=== PATIENT | male | born 1955 | race Caucasian/White ===

== ENCOUNTER 2018-05-29 16:06 | Inpatient (IN) | payer OTHER, SELFPAY ==
[2018-05-29 16:20] VITALS: BP 137/86; PULSE 63; RESP 16; TEMP 36.8; O2SAT 96; BMI 28.3
--- NOTE | 2018-05-29 16:25 | DI.RAD.S_ITS ---
PROCEDURE: XR RIBS LT MIN 3V W CXR1V INDICATIONS: fell and hurt left side of back/ribs. TECHNIQUE: 2 views of the left hip ribs were acquired, along with a single view chest. COMPARISON: None. FINDINGS: Surgical changes and devices: None. Left seventh-ninth rib fractures, mildly displaced. There is also a lateral 11th rib fracture Lungs and pleura: No pleural effusions or pneumothorax. Low lung volumes. No acute consolidation Mediastinum: Mediastinal contours appear normal. Heart size is normal. IMPRESSION: Minimally displaced left seventh, eighth, ninth and 11th rib fractures. Low lung volumes. No acute consolidation No pneumothorax. Dictated by: Jonathan Ambriz M.D. on 05/29/2018 at 16:45 Approved by: Jonathan Ambriz M.D. on 05/29/2018 at 16:53
--- NOTE | 2018-05-29 17:36 | ED.FALL ---
HPI - Fall <Suzy Gomes PA-C - Last Filed: 05/29/18 21:31> General Chief Complaint: Trauma Stated Complaint: Fall 5ft, has left rib pain Time Seen by Provider: 05/29/18 17:27 Source: patient Mode of arrival: ambulatory Limitations: no limitations History of Present Illness HPI Narrative: This 62-year-old male comes in today after he fell 65 in off of a scaffolding at work onto his left posterior lateral rib area. Since then, he has had pain in his ribs. He states that he is not short of breath but it is painful to breathe. He does not have any history of cardiac or lung disease. He denies hitting his head or LOC. He denies neck pain.. He states that he scraped his left wrist but not having any trouble moving it and denies any other injury. Related Data Home Medications Medication Instructions Recorded Confirmed lisinopril 10 mg PO DAILY 05/29/18 05/29/18 Previous Rx's Medication Instructions Recorded hydrocodone-acetaminophen [Vicodin 1 tab PO Q4-6H PRN #20 tab 05/31/18 HP] Allergies Allergy/AdvReac Type Severity Reaction Status Date / Time No Known Drug Allergies Allergy Verified 05/29/18 16:23 Review of Systems <Suzy Gomes PA-C - Last Filed: 05/29/18 21:31> Review of Systems All systems reviewed & are unremarkable except as noted in HPI and below Exam <Suzy Gomes PA-C - Last Filed: 05/29/18 21:31> Narrative Exam Narrative: GENERAL APPEARANCE: Patient appears mildly uncomfortable, but in NAD NECK/THYROID: Neck supple LUNGS: Clear to auscultation bilaterally, patient is splinting. CHEST: Tender over the left mid to inferior posterior lateral ribs, no tenderness elsewhere over the chest HEART: Regular rate and rhythm without murmur, normal S1, S2, no S3 or S4. ABDOMEN: Soft, NT, ND, + BS x 4 quadrants EXTREMITIES: No edema NEUROLOGIC: Alert and oriented, normal speech, gait and coordination. Initial Vital Signs Initial Vital Signs: Vital Signs Temperature 98.3 F 05/29/18 16:20 Pulse Rate 63 05/29/18 16:20 Respiratory Rate 16 05/29/18 16:20 Blood Pressure 137/86 05/29/18 16:20 Pulse Oximetry 96 05/29/18 16:20 <Alejo Covarrubias DO - Last Filed: 06/01/18 07:28> Initial Vital Signs Initial Vital Signs: Vital Signs Temperature 98.3 F 05/29/18 16:20 Pulse Rate 63 05/29/18 16:20 Respiratory Rate 16 05/29/18 16:20 Blood Pressure 137/86 05/29/18 16:20 Pulse Oximetry 96 05/29/18 16:20 Course <Suzy Gomes PA-C - Last Filed: 05/29/18 21:31> Additional Information: Spoke with Dr. 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 She took report on the patient and will have the night call provider do H&P as we are just initiating IV and pain medication for patient and are waiting on a floor bed for him. Patient felt much improved after Dilaudid with more comfort taking deep breaths and was stable during his ED stay Orders Ordered: Discontinued Medications Acetaminophen (Tylenol) 1,000 mg PO Q8HR PRN PRN Reason: pain mild and moderate Acetaminophen (Tylenol) 975 mg PO Q8HR PRN PRN Reason: pain mild and moderate Last Admin: 05/31/18 08:27 Dose: 975 mg Admin: 05/30/18 09:15 Dose: 975 mg Hydrocodone Bitart/Acetaminophen ([place] 5/325) 2 tab PO NOW ONE Stop: 05/29/18 17:19 Last Admin: 05/29/18 17:44 Dose: 2 tab Bisacodyl (Dulcolax) 10 mg [place] DAILY PRN PRN Reason: Constipation Docusate Sodium (Colace) 100 mg PO BID [facility] Last Admin: 05/30/18 19:51 Dose: Not Given Admin: 05/30/18 09:17 Dose: 100 mg Admin: 05/29/18 23:31 Dose: 100 mg Fentanyl (Sublimaze) 25 mcg IV NOW ONE Stop: 05/29/18 21:27 Last Admin: 05/29/18 21:40 Dose: 25 mcg Heparin Sodium (Porcine) (Heparin) 5,000 unit SUBCUT BID [facility] Last Admin: 05/30/18 19:50 Dose: Not Given Admin: 05/30/18 10:30 Dose: Not Given Hydromorphone HCl (Dilaudid) 1 mg IV NOW ONE Stop: 05/29/18 17:46 Last Admin: 05/29/18 18:40 Dose: 1 mg Hydromorphone HCl (Dilaudid) 1 mg IV Q4H PRN PRN Reason: Pain, Severe (7-10) Last Admin: 05/29/18 23:24 Dose: 1 mg Hydromorphone HCl (Dilaudid) 1 mg IV Q4H PRN PRN Reason: Pain, Severe (7-10) Stop: 06/01/18 06:00 Last Admin: 05/30/18 14:15 Dose: 1 mg Admin: 05/30/18 03:39 Dose: 1 mg Sodium Chloride (Normal Saline 0.9%) 1,000 mls @ 75 mls/hr IV CONT [facility] Last Infusion: 05/30/18 10:33 Dose: 0 mls/hr Infusion: 05/30/18 10:31 Dose: 0 mls/hr Infusion: 05/30/18 09:17 Dose: 0 mls/hr Admin: 05/30/18 02:20 Dose: 75 mls/hr Ketorolac Tromethamine (Toradol) 30 mg IV Q8HR [facility] Stop: 06/03/18 22:17 Last Admin: 05/29/18 23:21 Dose: 30 mg Ketorolac Tromethamine (Toradol) 30 mg IV Q8HR [facility] Stop: 06/01/18 06:00 Last Admin: 05/31/18 05:52 Dose: 30 mg Admin: 05/30/18 21:32 Dose: 30 mg Admin: 05/30/18 13:50 Dose: 30 mg Admin: 05/30/18 05:59 Dose: 30 mg Lisinopril (Zestril) 10 mg PO DAILY [facility] Last Admin: 05/30/18 09:16 Dose: 10 mg Melatonin (Melatonin) 6 mg PO BEDTIME [facility] Oxycodone HCl (Percolone) 5 mg PO Q4HR [facility] Last Admin: 05/30/18 10:33 Dose: Not Given Admin: 05/30/18 05:08 Dose: 5 mg Admin: 05/30/18 01:32 Dose: 5 mg Oxycodone HCl ([place]one) 5 mg PO Q4HR [facility] Last Admin: 05/31/18 08:28 Dose: 5 mg Admin: 05/31/18 04:48 Dose: 5 mg Admin: 05/31/18 01:06 Dose: 5 mg Admin: 05/30/18 20:55 Dose: 5 mg Admin: 05/30/18 17:57 Dose: 5 mg Admin: 05/30/18 12:52 Dose: 5 mg Admin: 05/30/18 09:16 Dose: 5 mg Trazodone HCl (Desyrel) 50 mg PO BEDTIME ONE Stop: 05/30/18 22:36 Last Admin: 05/30/18 22:53 Dose: 50 mg Vital Signs - 8 hr 05/29/18 16:20 05/29/18 21:29 Temperature 98.3 F 97.0 F L Pulse Rate 63 60 Respiratory Rate 16 18 Blood Pressure 137/86 148/93 H Pulse Oximetry 96 96 <Alejo Covarrubias DO - Last Filed: 06/01/18 07:28> Orders Ordered: Discontinued Medications Acetaminophen (Tylenol) 1,000 mg PO Q8HR PRN PRN Reason: pain mild and moderate Acetaminophen (Tylenol) 975 mg PO Q8HR PRN PRN Reason: pain mild and moderate Last Admin: 05/31/18 08:27 Dose: 975 mg Admin: 05/30/18 09:15 Dose: 975 mg Hydrocodone Bitart/Acetaminophen ([place] 5/325) 2 tab PO NOW ONE Stop: 05/29/18 17:19 Last Admin: 05/29/18 17:44 Dose: 2 tab Bisacodyl (Dulcolax) 10 mg TN DAILY PRN PRN Reason: Constipation Docusate Sodium (Colace) 100 mg PO BID [facility] Last Admin: 05/30/18 19:51 Dose: Not Given Admin: 05/30/18 09:17 Dose: 100 mg Admin: 05/29/18 23:31 Dose: 100 mg Fentanyl (Sublimaze) 25 mcg IV NOW ONE Stop: 05/29/18 21:27 Last Admin: 05/29/18 21:40 Dose: 25 mcg Heparin Sodium (Porcine) (Heparin) 5,000 unit SUBCUT BID [facility] Last Admin: 05/30/18 19:50 Dose: Not Given Admin: 05/30/18 10:30 Dose: Not Given Hydromorphone HCl (Dilaudid) 1 mg IV NOW ONE Stop: 05/29/18 17:46 Last Admin: 05/29/18 18:40 Dose: 1 mg Hydromorphone HCl (Dilaudid) 1 mg IV Q4H PRN PRN Reason: Pain, Severe (7-10) Last Admin: 05/29/18 23:24 Dose: 1 mg Hydromorphone HCl (Dilaudid) 1 mg IV Q4H PRN PRN Reason: Pain, Severe (7-10) Stop: 06/01/18 06:00 Last Admin: 05/30/18 14:15 Dose: 1 mg Admin: 05/30/18 03:39 Dose: 1 mg Sodium Chloride (Normal Saline 0.9%) 1,000 mls @ 75 mls/hr IV CONT [facility] Last Infusion: 05/30/18 10:33 Dose: 0 mls/hr Infusion: 05/30/18 10:31 Dose: 0 mls/hr Infusion: 05/30/18 09:17 Dose: 0 mls/hr Admin: 05/30/18 02:20 Dose: 75 mls/hr Ketorolac Tromethamine (Toradol) 30 mg IV Q8HR [facility] Stop: 06/03/18 22:17 Last Admin: 05/29/18 23:21 Dose: 30 mg Ketorolac Tromethamine (Toradol) 30 mg IV Q8HR [facility] Stop: 06/01/18 06:00 Last Admin: 05/31/18 05:52 Dose: 30 mg Admin: 05/30/18 21:32 Dose: 30 mg Admin: 05/30/18 13:50 Dose: 30 mg Admin: 05/30/18 05:59 Dose: 30 mg Lisinopril (Zestril) 10 mg PO DAILY [facility] Last Admin: 05/30/18 09:16 Dose: 10 mg Melatonin (Melatonin) 6 mg PO BEDTIME [facility] Oxycodone HCl ([place]) 5 mg PO Q4HR [facility] Last Admin: 05/30/18 10:33 Dose: Not Given Admin: 05/30/18 05:08 Dose: 5 mg Admin: 05/30/18 01:32 Dose: 5 mg Oxycodone HCl ([place]) 5 mg PO Q4HR [facility] Last Admin: 05/31/18 08:28 Dose: 5 mg Admin: 05/31/18 04:48 Dose: 5 mg Admin: 05/31/18 01:06 Dose: 5 mg Admin: 05/30/18 20:55 Dose: 5 mg Admin: 05/30/18 17:57 Dose: 5 mg Admin: 05/30/18 12:52 Dose: 5 mg Admin: 05/30/18 09:16 Dose: 5 mg Trazodone HCl (Desyrel) 50 mg PO BEDTIME ONE Stop: 05/30/18 22:36 Last Admin: 05/30/18 22:53 Dose: 50 mg Vital Signs - 8 hr 05/29/18 16:20 05/29/18 21:29 Temperature 98.3 F 97.0 F L Pulse Rate 63 60 Respiratory Rate 16 18 Blood Pressure 137/86 148/93 H Pulse Oximetry 96 96 MDM - Fall <Suzy Gomes PA-C - Last Filed: 05/29/18 21:31> Lab Data Result diagrams: 05/31/18 04:45 05/31/18 04:45 Lab Results 05/29/18 05/30/18 05/30/18 Range/Units 21:01 04:39 04:39 WBC 8.9 (4.5-11.0) X10^3/uL RBC 4.36 L (4.5-5.9) X10^6/uL Hgb 13.2 L (13.5-17.5) g/dL Hct 38.8 L (41-53) % MCV 88.8 (80-100) fL MCH 30.2 (26-34) PG MCHC 34.0 (30-36) % RDW 13.0 (11.6-14.8) % Plt Count 269 (150-400) X10^3/uL Neut % (Auto) 72.2 (50-75) % Lymph % (Auto) 17.8 L (25-40) % [place] % (Auto) 9.5 (3-14) % Eos % (Auto) 0.4 L (2-4) % Baso % (Auto) 0.1 (0-2) % Neut # (Auto) 6400 H (6171-9764) /uL Sodium 137 (137-145) mmol/L Potassium 3.9 (3.4-5.1) mmol/L Chloride 102 (98-107) mmol/L Carbon Dioxide 27 (22-32) mmol/L BUN 20 (9-20) mg/dL Creatinine 0.80 (0.66-1.25) mg/dL Estimated GFR > 60.0 (>60) mL/min BUN/Creatinine Ratio 25.0 H (6-22) Glucose 114 H (80-110) mg/dL Calcium 9.3 (8.4-10.2) mg/dL Total Bilirubin 0.5 (0.2-1.3) mg/dL AST 28 (17-59) IU/L ALT 38 (21-72) IU/L Alkaline Phosphatase 47 (38-126) U/L Total Protein 6.6 (6.3-8.2) g/dL Albumin 3.9 (3.5-5.0) g/dL Globulin 2.7 (1.7-4.1) g/dL Albumin/Globulin Ratio 1.4 (1.0-2.8) Nasal Screen MRSA (PCR) Negative for mrsa (Negative) 05/31/18 05/31/18 Range/Units 04:45 04:45 WBC 5.8 (4.5-11.0) X10^3/uL RBC 4.40 L (4.5-5.9) X10^6/uL Hgb 13.1 L (13.5-17.5) g/dL Hct 39.2 L (41-53) % MCV 89.0 (80-100) fL MCH 29.7 (26-34) PG MCHC 33.4 (30-36) % RDW 12.9 (11.6-14.8) % Plt Count 231 (150-400) X10^3/uL Neut % (Auto) 60.5 (50-75) % Lymph % (Auto) 26.6 (25-40) % [place] % (Auto) 9.8 (3-14) % Eos % (Auto) 2.4 (2-4) % Baso % (Auto) 0.7 (0-2) % Neut # (Auto) 3500 (5668-7048) /uL Sodium 140 (137-145) mmol/L Potassium 4.2 (3.4-5.1) mmol/L Chloride 104 (98-107) mmol/L Carbon Dioxide 28 (22-32) mmol/L BUN 18 (9-20) mg/dL Creatinine 0.70 (0.66-1.25) mg/dL Estimated GFR > 60.0 (>60) mL/min BUN/Creatinine Ratio 25.7 H (6-22) Glucose 102 (80-110) mg/dL Calcium 8.8 (8.4-10.2) mg/dL Total Bilirubin (0.2-1.3) mg/dL AST (17-59) IU/L ALT (21-72) IU/L Alkaline Phosphatase (38-126) U/L Total Protein (6.3-8.2) g/dL Albumin (3.5-5.0) g/dL Globulin (1.7-4.1) g/dL Albumin/Globulin Ratio (1.0-2.8) Nasal Screen MRSA (PCR) (Negative) Imaging Data Chest x-ray: Radiologist's impression: [address] [address] XRay Report Signed Patient: Shar Charlton EMR#: [id number] : 5Acct:[id number] Age/Sex: 62 / MDate of Service: 05/29/18 Loc: ED Accession Number: [id number] Procedure: XR ribs LT min 3V w CXR1V Ordering Provider: Alejo Covarrubias D.O. PROCEDURE: XR RIBS LT MIN 3V W CXR1V INDICATIONS: fell and hurt left side of back/ribs. TECHNIQUE: 2 views of the left hip ribs were acquired, along with a single view chest. COMPARISON: None. FINDINGS: Surgical changes and devices: None. Left seventh-ninth rib fractures, mildly displaced. There is also a lateral 11th rib fracture Lungs and pleura: No pleural effusions or pneumothorax. Low lung volumes. No acute consolidation Mediastinum: Mediastinal contours appear normal. Heart size is normal. IMPRESSION: Minimally displaced left seventh, eighth, ninth and 11th rib fractures. Low lung volumes. No acute consolidation No pneumothorax. Dictated by: Jonathan Ambriz M.D. on 05/29/2018 at 16:45 Approved by: Jonathan Ambriz M.D. on 05/29/2018 at 16:53 <Alejo Covarrubias DO - Last Filed: 06/01/18 07:28> Lab Data Lab Results 05/29/18 05/30/18 05/30/18 Range/Units 21:01 04:39 04:39 WBC 8.9 (4.5-11.0) X10^3/uL RBC 4.36 L (4.5-5.9) X10^6/uL Hgb 13.2 L (13.5-17.5) g/dL Hct 38.8 L (41-53) % MCV 88.8 (80-100) fL MCH 30.2 (26-34) PG MCHC 34.0 (30-36) % RDW 13.0 (11.6-14.8) % Plt Count 269 (150-400) X10^3/uL Neut % (Auto) 72.2 (50-75) % Lymph % (Auto) 17.8 L (25-40) % [place] % (Auto) 9.5 (3-14) % Eos % (Auto) 0.4 L (2-4) % Baso % (Auto) 0.1 (0-2) % Neut # (Auto) 6400 H (2244-7180) /uL Sodium 137 (137-145) mmol/L Potassium 3.9 (3.4-5.1) mmol/L Chloride 102 (98-107) mmol/L Carbon Dioxide 27 (22-32) mmol/L BUN 20 (9-20) mg/dL Creatinine 0.80 (0.66-1.25) mg/dL Estimated GFR > 60.0 (>60) mL/min BUN/Creatinine Ratio 25.0 H (6-22) Glucose 114 H (80-110) mg/dL Calcium 9.3 (8.4-10.2) mg/dL Total Bilirubin 0.5 (0.2-1.3) mg/dL AST 28 (17-59) IU/L ALT 38 (21-72) IU/L Alkaline Phosphatase 47 (38-126) U/L Total Protein 6.6 (6.3-8.2) g/dL Albumin 3.9 (3.5-5.0) g/dL Globulin 2.7 (1.7-4.1) g/dL Albumin/Globulin Ratio 1.4 (1.0-2.8) Nasal Screen MRSA (PCR) Negative for mrsa (Negative) 05/31/18 05/31/18 Range/Units 04:45 04:45 WBC 5.8 (4.5-11.0) X10^3/uL RBC 4.40 L (4.5-5.9) X10^6/uL Hgb 13.1 L (13.5-17.5) g/dL Hct 39.2 L (41-53) % MCV 89.0 (80-100) fL MCH 29.7 (26-34) PG MCHC 33.4 (30-36) % RDW 12.9 (11.6-14.8) % Plt Count 231 (150-400) X10^3/uL Neut % (Auto) 60.5 (50-75) % Lymph % (Auto) 26.6 (25-40) % [place] % (Auto) 9.8 (3-14) % Eos % (Auto) 2.4 (2-4) % Baso % (Auto) 0.7 (0-2) % Neut # (Auto) 3500 (1133-2175) /uL Sodium 140 (137-145) mmol/L Potassium 4.2 (3.4-5.1) mmol/L Chloride 104 (98-107) mmol/L Carbon Dioxide 28 (22-32) mmol/L BUN 18 (9-20) mg/dL Creatinine 0.70 (0.66-1.25) mg/dL Estimated GFR > 60.0 (>60) mL/min BUN/Creatinine Ratio 25.7 H (6-22) Glucose 102 (80-110) mg/dL Calcium 8.8 (8.4-10.2) mg/dL Total Bilirubin (0.2-1.3) mg/dL AST (17-59) IU/L ALT (21-72) IU/L Alkaline Phosphatase (38-126) U/L Total Protein (6.3-8.2) g/dL Albumin (3.5-5.0) g/dL Globulin (1.7-4.1) g/dL Albumin/Globulin Ratio (1.0-2.8) Nasal Screen MRSA (PCR) (Negative) Discharge Plan Departure Patient Disposition: Admitted as Observation Clinical Impression: Multiple fractures of rib involving four or more ribs Discharge Date/Time: 05/29/18 20:51 Interventions: ED Discharge Assessment Last Done: 05/29/18 20:50 Admit Date/Time: 05/29/18 18:02 Admit Provider: Jayna Christensen <Alejo Covarrubias, - Last Filed: 06/01/18 07:28> Cosign ED Attending Homero Attestation: I was available for consultation during this patient's emergency department encounter
--- NOTE | 2018-05-29 17:39 | ED_ITS ---
HPI - Fall <Suzy Gomes PA-C - Last Filed: 05/29/18 21:31> General Chief Complaint: Trauma Stated Complaint: Fall 5ft, has left rib pain Time Seen by Provider: 05/29/18 17:27 Source: patient Mode of arrival: ambulatory Limitations: no limitations History of Present Illness HPI Narrative: This 62-year-old male comes in today after he fell 65 in off of a scaffolding at work onto his left posterior lateral rib area. Since then, he has had pain in his ribs. He states that he is not short of breath but it is painful to breathe. He does not have any history of cardiac or lung disease. He denies hitting his head or LOC. He denies neck pain.. He states that he scraped his left wrist but not having any trouble moving it and denies any other injury. Related Data Home Medications Medication Instructions Recorded Confirmed lisinopril 10 mg PO DAILY 05/29/18 05/29/18 Previous Rx's Medication Instructions Recorded hydrocodone-acetaminophen [Vicodin 1 tab PO Q4-6H PRN #20 tab 05/31/18 HP] Allergies Allergy/AdvReac Type Severity Reaction Status Date / Time No Known Drug Allergies Allergy Verified 05/29/18 16:23 Review of Systems <Suzy Gomes PA-C - Last Filed: 05/29/18 21:31> Review of Systems All systems reviewed & are unremarkable except as noted in HPI and below Exam <Suzy Gomes PA-C - Last Filed: 05/29/18 21:31> Narrative Exam Narrative: GENERAL APPEARANCE: Patient appears mildly uncomfortable, but in NAD NECK/THYROID: Neck supple LUNGS: Clear to auscultation bilaterally, patient is splinting. CHEST: Tender over the left mid to inferior posterior lateral ribs, no tenderness elsewhere over the chest HEART: Regular rate and rhythm without murmur, normal S1, S2, no S3 or S4. ABDOMEN: Soft, NT, ND, + BS x 4 quadrants EXTREMITIES: No edema NEUROLOGIC: Alert and oriented, normal speech, gait and coordination. Initial Vital Signs Initial Vital Signs: Vital Signs Temperature 98.3 F 05/29/18 16:20 Pulse Rate 63 05/29/18 16:20 Respiratory Rate 16 05/29/18 16:20 Blood Pressure 137/86 05/29/18 16:20 Pulse Oximetry 96 05/29/18 16:20 <Alejo Covarrubias DO - Last Filed: 06/01/18 07:28> Initial Vital Signs Initial Vital Signs: Vital Signs Temperature 98.3 F 05/29/18 16:20 Pulse Rate 63 05/29/18 16:20 Respiratory Rate 16 05/29/18 16:20 Blood Pressure 137/86 05/29/18 16:20 Pulse Oximetry 96 05/29/18 16:20 Course <Suzy Gomes PA-C - Last Filed: 05/29/18 21:31> Additional Information: Spoke with Dr. Christensen ip litigation associate hospitalist. She took report on the patient and will have the night call provider do H&P as we are just initiating IV and pain medication for patient and are waiting on a floor bed for him. Patient felt much improved after Dilaudid with more comfort taking deep breaths and was stable during his ED stay Orders Ordered: Discontinued Medications Acetaminophen (Tylenol) 1,000 mg PO Q8HR PRN PRN Reason: pain mild and moderate Acetaminophen (Tylenol) 975 mg PO Q8HR PRN PRN Reason: pain mild and moderate Last Admin: 05/31/18 08:27 Dose: 975 mg Admin: 05/30/18 09:15 Dose: 975 mg Hydrocodone Bitart/Acetaminophen ([place] 5/325) 2 tab PO NOW ONE Stop: 05/29/18 17:19 Last Admin: 05/29/18 17:44 Dose: 2 tab Bisacodyl (Dulcolax) 10 mg ID DAILY PRN PRN Reason: Constipation Docusate Sodium (Colace) 100 mg PO BID [facility] Last Admin: 05/30/18 19:51 Dose: Not Given Admin: 05/30/18 09:17 Dose: 100 mg Admin: 05/29/18 23:31 Dose: 100 mg Fentanyl (Sublimaze) 25 mcg IV NOW ONE Stop: 05/29/18 21:27 Last Admin: 05/29/18 21:40 Dose: 25 mcg Heparin Sodium (Porcine) (Heparin) 5,000 unit SUBCUT BID [facility] Last Admin: 05/30/18 19:50 Dose: Not Given Admin: 05/30/18 10:30 Dose: Not Given Hydromorphone HCl (Dilaudid) 1 mg IV NOW ONE Stop: 05/29/18 17:46 Last Admin: 05/29/18 18:40 Dose: 1 mg Hydromorphone HCl (Dilaudid) 1 mg IV Q4H PRN PRN Reason: Pain, Severe (7-10) Last Admin: 05/29/18 23:24 Dose: 1 mg Hydromorphone HCl (Dilaudid) 1 mg IV Q4H PRN PRN Reason: Pain, Severe (7-10) Stop: 06/01/18 06:00 Last Admin: 05/30/18 14:15 Dose: 1 mg Admin: 05/30/18 03:39 Dose: 1 mg Sodium Chloride (Normal Saline 0.9%) 1,000 mls @ 75 mls/hr IV CONT [facility] Last Infusion: 05/30/18 10:33 Dose: 0 mls/hr Infusion: 05/30/18 10:31 Dose: 0 mls/hr Infusion: 05/30/18 09:17 Dose: 0 mls/hr Admin: 05/30/18 02:20 Dose: 75 mls/hr Ketorolac Tromethamine (Toradol) 30 mg IV Q8HR [facility] Stop: 06/03/18 22:17 Last Admin: 05/29/18 23:21 Dose: 30 mg Ketorolac Tromethamine (Toradol) 30 mg IV Q8HR [facility] Stop: 06/01/18 06:00 Last Admin: 05/31/18 05:52 Dose: 30 mg Admin: 05/30/18 21:32 Dose: 30 mg Admin: 05/30/18 13:50 Dose: 30 mg Admin: 05/30/18 05:59 Dose: 30 mg Lisinopril (Zestril) 10 mg PO DAILY [facility] Last Admin: 05/30/18 09:16 Dose: 10 mg Melatonin (Melatonin) 6 mg PO BEDTIME [facility] Oxycodone HCl (Percolone) 5 mg PO Q4HR [facility] Last Admin: 05/30/18 10:33 Dose: Not Given Admin: 05/30/18 05:08 Dose: 5 mg Admin: 05/30/18 01:32 Dose: 5 mg Oxycodone HCl (Percolone) 5 mg PO Q4HR [facility] Last Admin: 05/31/18 08:28 Dose: 5 mg Admin: 05/31/18 04:48 Dose: 5 mg Admin: 05/31/18 01:06 Dose: 5 mg Admin: 05/30/18 20:55 Dose: 5 mg Admin: 05/30/18 17:57 Dose: 5 mg Admin: 05/30/18 12:52 Dose: 5 mg Admin: 05/30/18 09:16 Dose: 5 mg Trazodone HCl (Desyrel) 50 mg PO BEDTIME ONE Stop: 05/30/18 22:36 Last Admin: 05/30/18 22:53 Dose: 50 mg Vital Signs - 8 hr 05/29/18 16:20 05/29/18 21:29 Temperature 98.3 F 97.0 F L Pulse Rate 63 60 Respiratory Rate 16 18 Blood Pressure 137/86 148/93 H Pulse Oximetry 96 96 <Alejo Covarrubias DO - Last Filed: 06/01/18 07:28> Orders Ordered: Discontinued Medications Acetaminophen (Tylenol) 1,000 mg PO Q8HR PRN PRN Reason: pain mild and moderate Acetaminophen (Tylenol) 975 mg PO Q8HR PRN PRN Reason: pain mild and moderate Last Admin: 05/31/18 08:27 Dose: 975 mg Admin: 05/30/18 09:15 Dose: 975 mg Hydrocodone Bitart/Acetaminophen ([place] 5/325) 2 tab PO NOW ONE Stop: 05/29/18 17:19 Last Admin: 05/29/18 17:44 Dose: 2 tab Bisacodyl (Dulcolax) 10 mg ID DAILY PRN PRN Reason: Constipation Docusate Sodium (Colace) 100 mg PO BID [facility] Last Admin: 05/30/18 19:51 Dose: Not Given Admin: 05/30/18 09:17 Dose: 100 mg Admin: 05/29/18 23:31 Dose: 100 mg Fentanyl (Sublimaze) 25 mcg IV NOW ONE Stop: 05/29/18 21:27 Last Admin: 05/29/18 21:40 Dose: 25 mcg Heparin Sodium (Porcine) (Heparin) 5,000 unit SUBCUT BID [facility] Last Admin: 05/30/18 19:50 Dose: Not Given Admin: 05/30/18 10:30 Dose: Not Given Hydromorphone HCl (Dilaudid) 1 mg IV NOW ONE Stop: 05/29/18 17:46 Last Admin: 05/29/18 18:40 Dose: 1 mg Hydromorphone HCl (Dilaudid) 1 mg IV Q4H PRN PRN Reason: Pain, Severe (7-10) Last Admin: 05/29/18 23:24 Dose: 1 mg Hydromorphone HCl (Dilaudid) 1 mg IV Q4H PRN PRN Reason: Pain, Severe (7-10) Stop: 06/01/18 06:00 Last Admin: 05/30/18 14:15 Dose: 1 mg Admin: 05/30/18 03:39 Dose: 1 mg Sodium Chloride (Normal Saline 0.9%) 1,000 mls @ 75 mls/hr IV CONT [facility] Last Infusion: 05/30/18 10:33 Dose: 0 mls/hr Infusion: 05/30/18 10:31 Dose: 0 mls/hr Infusion: 05/30/18 09:17 Dose: 0 mls/hr Admin: 05/30/18 02:20 Dose: 75 mls/hr Ketorolac Tromethamine (Toradol) 30 mg IV Q8HR [facility] Stop: 06/03/18 22:17 Last Admin: 05/29/18 23:21 Dose: 30 mg Ketorolac Tromethamine (Toradol) 30 mg IV Q8HR [facility] Stop: 06/01/18 06:00 Last Admin: 05/31/18 05:52 Dose: 30 mg Admin: 05/30/18 21:32 Dose: 30 mg Admin: 05/30/18 13:50 Dose: 30 mg Admin: 05/30/18 05:59 Dose: 30 mg Lisinopril (Zestril) 10 mg PO DAILY [facility] Last Admin: 05/30/18 09:16 Dose: 10 mg Melatonin (Melatonin) 6 mg PO BEDTIME [facility] Oxycodone HCl (Percolone) 5 mg PO Q4HR [facility] Last Admin: 05/30/18 10:33 Dose: Not Given Admin: 05/30/18 05:08 Dose: 5 mg Admin: 05/30/18 01:32 Dose: 5 mg Oxycodone HCl (Percolone) 5 mg PO Q4HR [facility] Last Admin: 05/31/18 08:28 Dose: 5 mg Admin: 05/31/18 04:48 Dose: 5 mg Admin: 05/31/18 01:06 Dose: 5 mg Admin: 05/30/18 20:55 Dose: 5 mg Admin: 05/30/18 17:57 Dose: 5 mg Admin: 05/30/18 12:52 Dose: 5 mg Admin: 05/30/18 09:16 Dose: 5 mg Trazodone HCl (Desyrel) 50 mg PO BEDTIME ONE Stop: 05/30/18 22:36 Last Admin: 05/30/18 22:53 Dose: 50 mg Vital Signs - 8 hr 05/29/18 16:20 05/29/18 21:29 Temperature 98.3 F 97.0 F L Pulse Rate 63 60 Respiratory Rate 16 18 Blood Pressure 137/86 148/93 H Pulse Oximetry 96 96 MDM - Fall <Suzy Gomes PA-C - Last Filed: 05/29/18 21:31> Lab Data Result diagrams: 05/31/18 04:45 05/31/18 04:45 Lab Results 05/29/18 05/30/18 05/30/18 Range/Units 21:01 04:39 04:39 WBC 8.9 (4.5-11.0) X10^3/uL RBC 4.36 L (4.5-5.9) X10^6/uL Hgb 13.2 L (13.5-17.5) g/dL Hct 38.8 L (41-53) % MCV 88.8 (80-100) fL MCH 30.2 (26-34) PG MCHC 34.0 (30-36) % RDW 13.0 (11.6-14.8) % Plt Count 269 (150-400) X10^3/uL Neut % (Auto) 72.2 (50-75) % Lymph % (Auto) 17.8 L (25-40) % Wirt % (Auto) 9.5 (3-14) % Eos % (Auto) 0.4 L (2-4) % Baso % (Auto) 0.1 (0-2) % Neut # (Auto) 6400 H (3982-0934) /uL Sodium 137 (137-145) mmol/L Potassium 3.9 (3.4-5.1) mmol/L Chloride 102 (98-107) mmol/L Carbon Dioxide 27 (22-32) mmol/L BUN 20 (9-20) mg/dL Creatinine 0.80 (0.66-1.25) mg/dL Estimated GFR > 60.0 (>60) mL/min BUN/Creatinine Ratio 25.0 H (6-22) Glucose 114 H (80-110) mg/dL Calcium 9.3 (8.4-10.2) mg/dL Total Bilirubin 0.5 (0.2-1.3) mg/dL AST 28 (17-59) IU/L ALT 38 (21-72) IU/L Alkaline Phosphatase 47 (38-126) U/L Total Protein 6.6 (6.3-8.2) g/dL Albumin 3.9 (3.5-5.0) g/dL Globulin 2.7 (1.7-4.1) g/dL Albumin/Globulin Ratio 1.4 (1.0-2.8) Nasal Screen MRSA (PCR) Negative for mrsa (Negative) 05/31/18 05/31/18 Range/Units 04:45 04:45 WBC 5.8 (4.5-11.0) X10^3/uL RBC 4.40 L (4.5-5.9) X10^6/uL Hgb 13.1 L (13.5-17.5) g/dL Hct 39.2 L (41-53) % MCV 89.0 (80-100) fL MCH 29.7 (26-34) PG MCHC 33.4 (30-36) % RDW 12.9 (11.6-14.8) % Plt Count 231 (150-400) X10^3/uL Neut % (Auto) 60.5 (50-75) % Lymph % (Auto) 26.6 (25-40) % Wirt % (Auto) 9.8 (3-14) % Eos % (Auto) 2.4 (2-4) % Baso % (Auto) 0.7 (0-2) % Neut # (Auto) 3500 (6128-4740) /uL Sodium 140 (137-145) mmol/L Potassium 4.2 (3.4-5.1) mmol/L Chloride 104 (98-107) mmol/L Carbon Dioxide 28 (22-32) mmol/L BUN 18 (9-20) mg/dL Creatinine 0.70 (0.66-1.25) mg/dL Estimated GFR > 60.0 (>60) mL/min BUN/Creatinine Ratio 25.7 H (6-22) Glucose 102 (80-110) mg/dL Calcium 8.8 (8.4-10.2) mg/dL Total Bilirubin (0.2-1.3) mg/dL AST (17-59) IU/L ALT (21-72) IU/L Alkaline Phosphatase (38-126) U/L Total Protein (6.3-8.2) g/dL Albumin (3.5-5.0) g/dL Globulin (1.7-4.1) g/dL Albumin/Globulin Ratio (1.0-2.8) Nasal Screen MRSA (PCR) (Negative) Imaging Data Chest x-ray: Radiologist's impression: [address] [address] XRay Report Signed Patient: Shar Charlton EMR#: [id number] : 5Acct:[id number] Age/Sex: 62 / MDate of Service: 05/29/18 Loc: ED Accession Number: [id number] Procedure: XR ribs LT min 3V w CXR1V Ordering Provider: Alejo Covarrubias D.O. PROCEDURE: XR RIBS LT MIN 3V W CXR1V INDICATIONS: fell and hurt left side of back/ribs. TECHNIQUE: 2 views of the left hip ribs were acquired, along with a single view chest. COMPARISON: None. FINDINGS: Surgical changes and devices: None. Left seventh-ninth rib fractures, mildly displaced. There is also a lateral 11th rib fracture Lungs and pleura: No pleural effusions or pneumothorax. Low lung volumes. No acute consolidation Mediastinum: Mediastinal contours appear normal. Heart size is normal. IMPRESSION: Minimally displaced left seventh, eighth, ninth and 11th rib fractures. Low lung volumes. No acute consolidation No pneumothorax. Dictated by: Jonathan Ambriz M.D. on 05/29/2018 at 16:45 Approved by: Jonathan Ambriz M.D. on 05/29/2018 at 16:53 <Alejo Covarrubias DO - Last Filed: 06/01/18 07:28> Lab Data Lab Results 05/29/18 05/30/18 05/30/18 Range/Units 21:01 04:39 04:39 WBC 8.9 (4.5-11.0) X10^3/uL RBC 4.36 L (4.5-5.9) X10^6/uL Hgb 13.2 L (13.5-17.5) g/dL Hct 38.8 L (41-53) % MCV 88.8 (80-100) fL MCH 30.2 (26-34) PG MCHC 34.0 (30-36) % RDW 13.0 (11.6-14.8) % Plt Count 269 (150-400) X10^3/uL Neut % (Auto) 72.2 (50-75) % Lymph % (Auto) 17.8 L (25-40) % Wirt % (Auto) 9.5 (3-14) % Eos % (Auto) 0.4 L (2-4) % Baso % (Auto) 0.1 (0-2) % Neut # (Auto) 6400 H (0377-7672) /uL Sodium 137 (137-145) mmol/L Potassium 3.9 (3.4-5.1) mmol/L Chloride 102 (98-107) mmol/L Carbon Dioxide 27 (22-32) mmol/L BUN 20 (9-20) mg/dL Creatinine 0.80 (0.66-1.25) mg/dL Estimated GFR > 60.0 (>60) mL/min BUN/Creatinine Ratio 25.0 H (6-22) Glucose 114 H (80-110) mg/dL Calcium 9.3 (8.4-10.2) mg/dL Total Bilirubin 0.5 (0.2-1.3) mg/dL AST 28 (17-59) IU/L ALT 38 (21-72) IU/L Alkaline Phosphatase 47 (38-126) U/L Total Protein 6.6 (6.3-8.2) g/dL Albumin 3.9 (3.5-5.0) g/dL Globulin 2.7 (1.7-4.1) g/dL Albumin/Globulin Ratio 1.4 (1.0-2.8) Nasal Screen MRSA (PCR) Negative for mrsa (Negative) 05/31/18 05/31/18 Range/Units 04:45 04:45 WBC 5.8 (4.5-11.0) X10^3/uL RBC 4.40 L (4.5-5.9) X10^6/uL Hgb 13.1 L (13.5-17.5) g/dL Hct 39.2 L (41-53) % MCV 89.0 (80-100) fL MCH 29.7 (26-34) PG MCHC 33.4 (30-36) % RDW 12.9 (11.6-14.8) % Plt Count 231 (150-400) X10^3/uL Neut % (Auto) 60.5 (50-75) % Lymph % (Auto) 26.6 (25-40) % Wirt % (Auto) 9.8 (3-14) % Eos % (Auto) 2.4 (2-4) % Baso % (Auto) 0.7 (0-2) % Neut # (Auto) 3500 (7851-5072) /uL Sodium 140 (137-145) mmol/L Potassium 4.2 (3.4-5.1) mmol/L Chloride 104 (98-107) mmol/L Carbon Dioxide 28 (22-32) mmol/L BUN 18 (9-20) mg/dL Creatinine 0.70 (0.66-1.25) mg/dL Estimated GFR > 60.0 (>60) mL/min BUN/Creatinine Ratio 25.7 H (6-22) Glucose 102 (80-110) mg/dL Calcium 8.8 (8.4-10.2) mg/dL Total Bilirubin (0.2-1.3) mg/dL AST (17-59) IU/L ALT (21-72) IU/L Alkaline Phosphatase (38-126) U/L Total Protein (6.3-8.2) g/dL Albumin (3.5-5.0) g/dL Globulin (1.7-4.1) g/dL Albumin/Globulin Ratio (1.0-2.8) Nasal Screen MRSA (PCR) (Negative) Discharge Plan Departure Patient Disposition: Admitted as Observation Clinical Impression: Multiple fractures of rib involving four or more ribs Discharge Date/Time: 05/29/18 20:51 Interventions: ED Discharge Assessment Last Done: 05/29/18 20:50 Admit Date/Time: 05/29/18 18:02 Admit Provider: Jayna Christensen <Alejo Covarrubias, - Last Filed: 06/01/18 07:28> Cosign ED Attending Homero Attestation: I was available for consultation during this patient's emergency department encounter
[2018-05-29] MEDS: HYDROCODONE/ACET 5/325 TABLET 2 TAB PO (17:44)
--- NOTE | 2018-05-29 17:44 | PC.NURSE ---
pt reports fell approx 5 ft onto his lt side, c/o low lt side posterior rib pain/tenderness, contusion at injury site, splinted resp, denies soa, abd soft/nontender, denies loc/neck pain/back pain, amb ind with steady gait
[2018-05-29] MEDS: HYDROMORPHONE 1 MG INJ IV (18:40)
--- NOTE | 2018-05-29 19:41 | PC.NURSE ---
placed by antonio RESENDEZ
[2018-05-29 20:56] VITALS: BMI 28.3
[2018-05-29 21:29] VITALS: BP 148/93; PULSE 60; RESP 18; TEMP 36.1; O2SAT 96
[2018-05-29] MEDS: fentaNYL 100 MCG/2 ML INJ 25 MCG IV (21:40)
[2018-05-29 22:00] VITALS: BP 148/93; PULSE 59; RESP 18; TEMP 37.1; O2SAT 94
--- NOTE | 2018-05-29 22:00 | PM.HP.1 ---
History of Present Illness Date Patient Seen: 05/29/18 Time Patient Seen: 22:00 Chief complaint: Fall 5ft, has left rib pain Narrative: The patient is a 62-year-old male with PMH significant for HTN. Patient presented out of concern for rib pain (left lateral / posterior aspect of torso). Prior to presentation patient was doing work on scaffolding equipment, which broke and caused patient to fall 65 feet onto the ground. He landed on the left lateral / posterior aspect of the torso. Denies injury to the head or loss of consciousness. Patient denies headache, change in vision, chest pain, neck pain, palpitations, dyspnea, dizziness, or lightheadedness. Currently complains of severe pain. In the ED, diagnostic imaging revealed minimally displaced left 7-9th and 11th rib fractures. Patient is being admitted for monitoring and acute pain management. Symptoms are exacerbated with deep inspiration and movement and relieved with rest and pain medication. Patient History Medical History HTN (hypertension) (Resolved) Surgical History History of knee surgery (Chronic) Family & Social History Family History: Reviewed 05/30/18 by ADONIS Floyd Social History: household members spouse Prior Living Arrangements House Safety & Behavioral: Feels Safe in Current Yes Environment Been Physically Hurt or No Threatened By a Person Suicidal Ideation Description None Tobacco & Substance use: Smoking Status Never smoker alcohol intake former alcohol intake frequency 0-2 drinks per day Substance Use Type does not use Meds Home Medications Medication Instructions Recorded Confirmed Type lisinopril 10 mg PO DAILY 05/29/18 05/29/18 History Allergies Allergy/AdvReac Type Severity Reaction Status Date / Time No Known Drug Allergies Allergy Verified 05/29/18 16:23 Review of Systems Review of Systems All systems reviewed & are unremarkable except as noted in HPI and below Exam Vital Signs (past 8 hours): - 05/29/18 16:20 05/29/18 21:29 05/29/18 22:00 Temperature 98.3 F 97.0 F L 98.7 F Pulse Rate 63 60 59 L Respiratory Rate 16 18 18 Blood Pressure 137/86 148/93 H 148/93 H Pulse Oximetry 96 96 94 Oxygen Delivery Method Room Air Narrative Exam Narrative: Constitutional: No acute distress Head: NC, AT EENT: pupils equal and reactive, gaze conjugate, sclera anicteric External ears normal, hearing acuity intact, no drainage External nose normal, no epistaxis Oropharynx without lesions/exudate Neck: No JVD, no focal tenderness of cervical, lumbar, or thoracic spine Chest / Lungs: Respiratory effort is nonlabored, breath sounds are diminished, no dyspnea or tachypnea, no accessory muscle use, on room air Heart: S1, S2 Abdomen: NT, ND, normoactive BS, no organomegally -Torso: posterior aspect : No bruising, mild to moderate edema of left lateral aspect of the torso, tenderness with palpation at the level of 7-9 rib Extremities: No edema or cyanosis, but pedal pulses palpable but weak Skin: Warm, no overt lesions. No palpable hematoma or bruising at the left lateral aspect of the torso. 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
[2018-05-29 22:25] VITALS: O2SAT 96
[2018-05-29] MEDS: KETOROLAC 30 MG/ML VIAL IV (23:21)
[2018-05-29] MEDS: HYDROMORPHONE 0.5 MG INJ 1 MG IV (23:24)
[2018-05-29] MEDS: DOCUSATE 100 MG CAPSULE PO (23:31)
[2018-05-29 23:52] VITALS: BP 157/79; PULSE 61; RESP 21; TEMP 36.8; O2SAT 94
[2018-05-30] VITALS (9 sets, daily range): BP systolic 133–163; BP diastolic 67–89; PULSE 53–66; RESP 15–20; TEMP 36.3–36.9; O2SAT 94–99
[2018-05-30] MEDS: OXYCODONE IR 10 MG TABLET 5 MG PO ×2 (01:32→05:08)
[2018-05-30] MEDS: SODIUM CHLORIDE 0.9% 1,000 ML 75 ML IV (02:20)
--- NOTE | 2018-05-30 02:34 | PC.NURSE ---
Admit Note: Pt admitted for observation post fall at work from broken scaffold. Pt sustained fractured 7-9 ribs, and 11. Also with soft tissue injury to left back, flank. No bruising noted. Pt AAOx3, on tele SR 1AVB. VSS. Complaining of 8/10 pain when mobile and 5/10 when lying in bed. LINUX ADMIN ENGINEER in to eval pt, pain meds scheduled. Discussed plan with pt. Pt understands. Floor care, tele.
[2018-05-30] MEDS: HYDROMORPHONE 0.5 MG INJ 1 MG IV ×2 (03:39→14:15)
[2018-05-30 05:19] LABS: Add Manual Diff / Slide Review NO; Basophils Percent Auto 0.1 % (0-2); Eosinophils Percent Auto 0.4 % (2-4); Hematocrit 38.8 % (41-53); Hemoglobin 13.2 g/dL (13.5-17.5); Lymphocytes Percent Auto 17.8 % (25-40); Mean Corpuscular Hemoglobin 30.2 PG (26-34); Mean Corpuscular Volume 88.8 fL (80-100); Monocytes Percent Auto 9.5 % (3-14); Neutrophils Absolute Auto 6400 /uL (3000-5900); Neutrophils Percent Auto 72.2 % (50-75); Platelet Count 269 X10^3/uL (150-400); Red Blood Cell Count 4.36 X10^6/uL (4.5-5.9); White Blood Cell Count 8.9 X10^3/uL (4.5-11.0)
[2018-05-30 05:25] LABS: Alanine Aminotransferase 38 IU/L (21-72); Albumin 3.9 g/dL (3.5-5.0); Albumin Globulin Ratio 1.4 (1.0-2.8); Alkaline Phosphatase 47 U/L (38-126); Aspartate Aminotransferase 28 IU/L (17-59); Bilirubin Total 0.5 mg/dL (0.2-1.3); Blood Urea Nitrogen 20 mg/dL (9-20); Calcium 9.3 mg/dL (8.4-10.2); Carbon Dioxide 27 mmol/L (22-32); Chloride 102 mmol/L (98-107); Estimated Glomerular Filt Rate > 60.0 mL/min (>60); Globulin 2.7 g/dL (1.7-4.1); Glucose 114 mg/dL (80-110); HEMOLYSIS < 15 (0-50); Potassium 3.9 mmol/L (3.4-5.1); Sodium 137 mmol/L (137-145); Total Protein 6.6 g/dL (6.3-8.2)
[2018-05-30] MEDS: KETOROLAC 30 MG/ML VIAL IV ×3 (05:59→21:32)
--- NOTE | 2018-05-30 08:02 | PM.PN.1 ---
Subjective Date Patient Seen: 05/30/18 Time Patient Seen: 08:02 Interval history: FOLLOW UP ON MULTIPLE RIB FRACTURES Patient seen at bedside. No overnight events. Pain is manageable with pain regimen given. No fever/chills. Breathing is non labored. No SOB. Exam Vital Signs (past 8 hours): - 05/30/18 00:12 05/30/18 03:50 05/30/18 03:52 Temperature 98.5 F Pulse Rate 64 Respiratory Rate 16 Blood Pressure 133/67 Pulse Oximetry 96 97 97 05/30/18 07:47 Temperature 98.5 F Pulse Rate 60 Respiratory Rate 15 Blood Pressure 143/85 H Pulse Oximetry 94 Oxygen Delivery Method Room Air Narrative Exam Narrative: General: No acute distress, AAO x3 HEENT: PERRLA bilaterally, EOMI bilaterally, moist mucous membranes Neck: Supple, no LAD or JVD CV: Regular rate rhythm no murmurs no gallops Respiratory: Clear to auscultation bilateral, no wheezes or crackles Chest: Pain to palpation in the left lateral region of the chest GI: Positive bowel sounds soft nontender, no organomegaly Musculoskeletal: Moves all extremities bilaterally Neuro: No focal deficits Psych: Normal mood and affect, able to make his own decisions Skin: No bruising or lesions. Objective Labs Result Diagrams: 05/30/18 04:39 05/30/18 04:39 Labs: Laboratory Results - last 24 hr 05/29/18 05/30/18 05/30/18 21:01 04:39 04:39 WBC 8.9 RBC 4.36 L Hgb 13.2 L Hct 38.8 L MCV 88.8 MCH 30.2 MCHC 34.0 RDW 13.0 Plt Count 269 Neut % (Auto) 72.2 Lymph % (Auto) 17.8 L [place] % (Auto) 9.5 Eos % (Auto) 0.4 L Baso % (Auto) 0.1 Neut # (Auto) 6400 H Sodium 137 Potassium 3.9 Chloride 102 Carbon Dioxide 27 BUN 20 Creatinine 0.80 Estimated GFR > 60.0 BUN/Creatinine Ratio 25.0 H Glucose 114 H Calcium 9.3 Total Bilirubin 0.5 AST 28 ALT 38 Alkaline Phosphatase 47 Total Protein 6.6 Albumin 3.9 Globulin 2.7 Albumin/Globulin Ratio 1.4 Nasal Screen MRSA (PCR) Negative for mrsa Assessment & Plan Plan: Assessment/Plan Narrative: 1. Multiple rib fractures -likely due to a fall (patient states he fell from a 5.5 ft plank) -x-ray of the chest revealed minimally displaced left 7th, 8th, 9th, and 11th rib fractures. No active consolidation or pneumothorax -continue pain control with Toradol 30 mg IV Q8H (plan to d/c in 48 hours), Dilaudid 1 mg IV Q4H prn (plan to d/c in 24-48 hours), and Oxycodone IR 5 mg Q4H prn as well as Tylenol 1000 mg Q8H prn -incentive spirometry -monitor for improvement 20 min spent evaluating and providing care for the patient
[2018-05-30] MEDS: ACETAMINOPHEN 325 MG TABLET 975 MG PO (09:15)
[2018-05-30] MEDS: OXYCODONE IR 5 MG TABLET PO ×4 (09:16→20:55)
[2018-05-30] MEDS: LISINOPRIL 10 MG TABLET PO (09:16)
[2018-05-30] MEDS: DOCUSATE 100 MG CAPSULE PO (09:17)
--- NOTE | 2018-05-30 11:59 | PC.NURSE ---
after speaking to md about potential for discharge as pt is controlled adequately with po pain rx, using IS well up to 1850 mls x 10 several times an hour -he is off tele ( per md order) to encourage frequent ambulation- hopeful to discharge later this date-
[2018-05-30] MEDS: TRAZODONE 50 MG TABLET PO (22:53)
[2018-05-31 00:55] VITALS: BP 120/64; PULSE 59; RESP 16; TEMP 36.5; O2SAT 98
[2018-05-31 01:00] VITALS: O2SAT 98
[2018-05-31] MEDS: OXYCODONE IR 5 MG TABLET PO ×3 (01:06→08:28)
[2018-05-31 03:58] VITALS: BP 116/68; PULSE 60; RESP 18; TEMP 36.6; O2SAT 97
[2018-05-31 05:18] LABS: Add Manual Diff / Slide Review NO; Basophils Percent Auto 0.7 % (0-2); Eosinophils Percent Auto 2.4 % (2-4); Hematocrit 39.2 % (41-53); Hemoglobin 13.1 g/dL (13.5-17.5); Lymphocytes Percent Auto 26.6 % (25-40); Mean Corpuscular HGB Conc 33.4 % (30-36); Mean Corpuscular Hemoglobin 29.7 PG (26-34); Monocytes Percent Auto 9.8 % (3-14); Neutrophils Absolute Auto 3500 /uL (3000-5900); Neutrophils Percent Auto 60.5 % (50-75); Platelet Count 231 X10^3/uL (150-400); Red Cell Distribution Width 12.9 % (11.6-14.8); White Blood Cell Count 5.8 X10^3/uL (4.5-11.0)
[2018-05-31 05:26] LABS: BUN Creatinine Ratio 25.7 (6-22); Blood Urea Nitrogen 18 mg/dL (9-20); Calcium 8.8 mg/dL (8.4-10.2); Carbon Dioxide 28 mmol/L (22-32); Chloride 104 mmol/L (98-107); Estimated Glomerular Filt Rate > 60.0 mL/min (>60); Glucose 102 mg/dL (80-110); HEMOLYSIS < 15 (0-50); Potassium 4.2 mmol/L (3.4-5.1); Sodium 140 mmol/L (137-145)
--- NOTE | 2018-05-31 05:31 | PC.NURSE ---
NOC Shift: Pt post 48 hours fall from scaffold at work w/left rib fractures 7-9, 11. VSS, off tele. Remains on RTC pain medication. Given sleep aide to help sleep tonight. States this AM he feels his pain is alittle worse today, possibly from being tired, sore. Wants to go home today. Ambulating w/SBA no problems.
[2018-05-31] MEDS: KETOROLAC 30 MG/ML VIAL IV (05:52)
[2018-05-31 08:12] VITALS: BP 148/87; PULSE 66; RESP 20; TEMP 36.6; O2SAT 97
[2018-05-31 08:27] VITALS: O2SAT 97
[2018-05-31] MEDS: ACETAMINOPHEN 325 MG TABLET 975 MG PO (08:27)
--- NOTE | 2018-05-31 09:03 | P.DS_ITS ---
History of Present Illness Date Patient Seen: 05/31/18 Time Patient Seen: 08:58 Chief complaint: Fall 5ft, has left rib pain Narrative: The patient is a 62-year-old male with PMH significant for HTN. Patient presented out of concern for rib pain (left lateral / posterior aspect of torso). Prior to presentation patient was doing work on scaffolding equipment, which broke and caused patient to fall 65 feet onto the ground. He landed on the left lateral / posterior aspect of the torso. Denies injury to the head or loss of consciousness. Patient denies headache, change in vision, chest pain, neck pain, palpitations, dyspnea, dizziness, or lightheadedness. Currently complains of severe pain. In the ED, diagnostic imaging revealed minimally displaced left 7-9th and 11th rib fractures. Patient is being admitted for monitoring and acute pain management. Symptoms are exacerbated with deep inspiration and movement and relieved with rest and pain medication. Discharge Providers Date of admission: 05/29/18 18:02 Discharge provider: Florence Mckeon MD Discharge Date: 05/31/18 Summary Discharge Diagnosis: S/P Fall Multiple rib fractures on the left 7-9th and 11 th rib Hypertension Hospital Course: Patient was admitted to the hospital following a fall. He fell when a scaffolding gave way about 65 inches. He sustained multiple rib fractures to the left involving the 7,8,9, 11 th rib. Patient had excellent pain control. He was able to breathe and had no hypoxia. He slept well and was deemed appropriate for discharge home. Patient will use the Incentive spirometer at home and will follow up with his PCP in one week. Exam Vital Signs (past 8 hours): - 05/31/18 01:00 05/31/18 03:58 05/31/18 08:12 Temperature 97.8 F 98 F Pulse Rate 60 66 Respiratory Rate 18 20 Blood Pressure 116/68 148/87 H Pulse Oximetry 98 97 97 Oxygen Delivery Method Room Air Oxygen Flow Rate 0 Narrative Exam Narrative: Pleasant gentleman in no acute distress Lungs: decreased but clear to auscultation CV: RRR nl Sl S2 Chest Wall: minimal bruising on left chest wall, mild tenderness to palpation Abd: soft Ext: no edema Objective Labs Result Diagrams: 05/31/18 04:45 05/31/18 04:45 Labs: Laboratory Results - last 24 hr 05/31/18 05/31/18 04:45 04:45 WBC 5.8 RBC 4.40 L Hgb 13.1 L Hct 39.2 L MCV 89.0 MCH 29.7 MCHC 33.4 RDW 12.9 Plt Count 231 Neut % (Auto) 60.5 Lymph % (Auto) 26.6 [place] % (Auto) 9.8 Eos % (Auto) 2.4 Baso % (Auto) 0.7 Neut # (Auto) 3500 Sodium 140 Potassium 4.2 Chloride 104 Carbon Dioxide 28 BUN 18 Creatinine 0.70 Estimated GFR > 60.0 BUN/Creatinine Ratio 25.7 H Glucose 102 Calcium 8.8 Discharge Plan Discharge Plan Discharge Problem: Multiple fractures of rib involving four or more ribs Patient Disposition: Home Discharge comment: Patient should follow up with his PCP, Dr. Smallwood in one week Discharge Med Rec/Prescriptions Prescriptions: New hydrocodone-acetaminophen [Vicodin HP] 10-300 mg tablet 1 tab PO Q4-6H PRN (Reason: pain) Qty: 20 RF: 0 Continue lisinopril 10 mg tablet 10 mg PO DAILY RF: 0 Provider Discharge Instructions Diet: Low-sodium Activity: As tolerated Oxygen: Not indicated Discharge Data Attending Provider: Jayna Christensen Admit Date/Time: 05/29/18 18:02
== END 2018-05-31 10:38 | disposition home or self-care (01) | DRG 135 ==
LOC: ED 17:52 → ICU 05-30 09:09 → AC 05-30 15:33
PROVIDERS: Nurse Practitioner Gerontology; Admitting Provider Internal Medicine; Emergency Provider Internal Medicine; Visit Provider Internal Medicine
DX: S22.42XA Multiple fractures of ribs, left side, initial encounter for closed fracture (principal); I10 Essential (primary) hypertension; W12.XXXA Fall on and from scaffolding, initial encounter; Y92.89 Other specified places as the place of occurrence of the external cause
CPT/HCPCS: 36415; 36591; 71101; 80048; 80053; 85025; 87797; 96374; 99282; 99284; J1170; J1885; J3010

== ENCOUNTER 2020-10-31 00:05 | Emergency (ER) | payer MEDICARE, OTHER, SELFPAY ==
[2018-12-13 13:54] VITALS: BMI 28.3
[2020-10-31] VITALS (10 sets, daily range): BP systolic 161–195; BP diastolic 74–84; PULSE 63–78; RESP 17; TEMP 36.7; O2SAT 94–100; BMI 29.0
--- NOTE | 2020-10-31 00:32 | DI.CT.S_ITS ---
PROCEDURE: CT ABDOMEN PELVIS W CON INDICATIONS: Generalized abdominal pain TECHNIQUE: After the administration of intravenous contrast, 5 mm thick sections acquired from the diaphragm to the symphysis. 5 mm coronal and sagittal reformats were acquired. For radiation dose reduction, the following was used: automated exposure control, adjustment of mA and/or kV according to patient size. COMPARISON: None. FINDINGS: Image quality: Excellent. ABDOMEN: Lung bases: Lung bases are clear. Heart size is normal. Solid organs: Liver is normal in size and enhancement. Gallbladder is nondistended. Question of layering noncalcified gallstones. Biliary system is non dilated. Pancreas enhances normally. Spleen is normal in size and enhancement. No adrenal nodules. Kidneys demonstrate normal size and enhancement, without hydronephrosis. Simple cyst at the superior pole of the right kidney measuring 1.7 cm. Peritoneum and bowel: Stomach is not distended. No small bowel obstruction. Colonic diverticulosis. No diverticulitis identified. The sigmoid colon may be thickened. Suspect prior inflammatory change about the sigmoid colon. Normal appendix. Minimal haziness to the left upper quadrant mesentery, (2/38). No free fluid or air. Nodes and vessels: No retroperitoneal or mesenteric adenopathy by size criteria. Aorta and inferior vena cava are normal in size. Miscellaneous: Tiny periumbilical hernia. PELVIS: Genitourinary: Bladder wall thickness is normal. Air in the urinary bladder. Prostatomegaly. Miscellaneous: Suspect bilateral fat containing inguinal hernias. No adenopathy. Bones: No suspicious bony lesions. Bilateral L5 pars defect. 0.9 cm anterolisthesis of L5 on S1. Moderate DDD in the lower lumbar spine. No vertebral body compression fractures. IMPRESSION: 1. No acute diverticulitis. No fluid collection. Diverticulosis. Sigmoid colon appears mildly thickened. -Consider colonoscopy for further evaluation if not recently performed. 2. Jordana left upper quadrant mesentery. Clinical significance is uncertain. This could be seen in mesenteric panniculitis. 3. Normal appendix. 4. Air in the urinary bladder. This is most likely due to catheterization or instrumentation. This could be seen in cystitis. No significant discrepancy with the overnight preliminary interpretation. Dictated by: Quang Rose M.D. on 10/31/2020 at 9:00 Approved by: Quang Rose M.D. on 10/31/2020 at 9:14
--- NOTE | 2020-10-31 00:33 | ED.NAVMDI ---
HPI - Nausea/Vomiting/Diarrhea General Chief complaint: Nausea/Vomiting/Diarrhea Stated complaint: N,V,D, possible food poisoning Time Seen by Provider: 10/31/20 00:13 Source: patient Mode of arrival: Ambulatory Limitations: no limitations History of Present Illness HPI Narrative: 65-year-old male here for evaluation of several hours of nausea. He states that he has not vomited but he feels like that he could vomit. He has not had any diarrhea. No recent travel. No recent antibiotic use. 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 He states that has caused him issues in the past with urinary tract infections. He states that over the past 24 hours he has developed some dark foul-smelling urine. Has not been around anybody who has been sick. Related Data Home Medications Medication Instructions Recorded Confirmed lisinopril 10 mg PO DAILY 05/29/18 05/29/18 Previous Rx's Medication Instructions Recorded cephalexin 500 mg PO Q12H 7 Days #14 tab 10/31/20 ondansetron 4 mg PO Q6H PRN #14 tab 10/31/20 Allergies Allergy/AdvReac Type Severity Reaction Status Date / Time No Known Drug Allergies Allergy Verified 12/13/18 13:19 Review of Systems Constitutional Constitutional: Denies fever(s) and Denies headache(s) ENT Ears, Nose, Mouth, and Throat: Denies headache(s) Cardiovascular Cardiovascular: Denies chest pain and Denies dyspnea Respiratory Respiratory: Denies dyspnea Gastrointestinal Gastrointestinal: Reports bloating, Reports cramping, Denies diarrhea, Reports nausea and Denies vomiting Genitourinary Genitourinary: Denies dysuria Genitourinary: Denies dysuria Musculoskeletal Musculoskeletal: Denies arthralgias and Denies myalgias Integumentary/Breasts Skin/Breast: Denies rash Neurologic Neurologic: Denies headache(s) Hematologic/Lymphatic On Anticoagulants: No Allergic/Immunologic Allergic/Immunologic: Denies urticaria Patient History Medical History Fistula HTN (hypertension) Surgical History History of knee surgery Family History Mother Cancer Father Cancer Brother Cancer Social History household members: spouse Smoking Status: Never smoker alcohol intake: former Smoking Status: Never smoker alcohol intake frequency: a few times a week Substance Use Type: does not use Exam Initial Vital Signs Initial Vital Signs: Vital Signs Pulse Rate 70 10/31/20 00:13 Blood Pressure 195/78 H 10/31/20 00:13 Pulse Oximetry 100 10/31/20 00:13 Const General: cooperative and comfortable Limitations: mental status not altered HENMT Head: normal to inspection and normocephalic Resp Effort & Inspection: normal respiratory effort Cardio Rate: regular rate GI Inspection: non-distended Palpation: tender (Diffuse) Skin Lesions: no lesions Rashes: no rashes Neuro General: patient alert, patient awake and patient oriented x3 Extrem General: normal to inspection and capillary refill normal Psych Appearance: grossly normal and well kempt Course Orders Ordered: ED Orders 10/31/20 00:19 Complete Blood Count AUTO DIFF Stat Comprehensive Metabolic Panel Stat Lipase Stat 10/31/20 00:32 CT abdomen pelvis w con Stat 10/31/20 02:00 Urine Culture Stat Urine Microscopic Stat Discontinued Medications Cephalexin HCl (Cephalexin 250 Mg Capsule) 500 mg PO NOW ONE Stop: 10/31/20 02:17 Last Admin: 10/31/20 02:22 Dose: 500 mg Documented by: ANKIT Sodium Chloride (Normal Saline 0.9%) 1,000 mls @ 1,000 mls/hr IV BOLUS ONE Stop: 10/31/20 01:31 Last Infusion: 10/31/20 02:05 Dose: 0 mls/hr Documented by: Admin: 10/31/20 00:39 Dose: 1,000 mls/hr Documented by: ANKIT Metoclopramide HCl (Metoclopramide 10 Mg/2 Ml Inj) 10 mg IV NOW ONE Stop: 10/31/20 02:46 Last Admin: 10/31/20 02:55 Dose: 10 mg Documented by: ANKIT Ondansetron HCl (Ondansetron 4 Mg/2 Ml Inj) 4 mg IV NOW ONE Stop: 10/31/20 00:15 Last Admin: 10/31/20 00:35 Dose: 4 mg Documented by: ANKIT Ondansetron HCl (Ondansetron 4 Mg Odt Prepack) 1 bottle MISC SEEINSTR ONE Stop: 10/31/20 02:17 Last Admin: 10/31/20 02:22 Dose: 1 bottle Documented by: ANKIT Ondansetron HCl (Ondansetron 4 Mg/2 Ml Inj) 4 mg IV NOW ONE Stop: 10/31/20 02:17 Last Admin: 10/31/20 02:22 Dose: 4 mg Documented by: ANKIT Vital Signs Vital signs: Vital Signs - 8 hr 10/31/20 00:13 10/31/20 00:15 10/31/20 00:30 Temperature 98.0 F Pulse Rate 70 70 78 Respiratory Rate 17 Blood Pressure 195/78 H 195/78 H Pulse Oximetry 100 100 100 10/31/20 00:31 10/31/20 01:00 10/31/20 01:30 Temperature Pulse Rate 75 69 71 Respiratory Rate Blood Pressure 161/74 H 175/84 H Pulse Oximetry 100 100 99 10/31/20 02:00 10/31/20 02:30 10/31/20 02:38 Temperature Pulse Rate 63 70 69 Respiratory Rate Blood Pressure 176/84 H Pulse Oximetry 100 100 100 10/31/20 03:00 Temperature Pulse Rate 65 Respiratory Rate Blood Pressure Pulse Oximetry 94 MDM - Nausea/Vomiting/Diarrhea Lab Data Attestation: I reviewed the patient's lab results. Result diagrams: 10/31/20 00:19 10/31/20 00:19 Labs: Lab Results 10/31/20 10/31/20 10/31/20 Range/Units 00:19 00:19 02:00 WBC 12.6 H (4.5-11.0) X10^3/uL RBC 5.12 (4.5-5.9) X10^6/uL Hgb 14.9 (13.5-17.5) g/dL Hct 44.1 (41-53) % MCV 86.2 (80-100) fL MCH 29.0 (26-34) PG MCHC 33.7 (30-36) % RDW 13.8 (11.6-14.8) % Plt Count 312 (150-400) X10^3/uL Neut % (Auto) 91.2 H (50-75) % Lymph % (Auto) 5.8 L (25-40) % [place] % (Auto) 2.7 L (3-14) % Eos % (Auto) 0.1 L (2-4) % Baso % (Auto) 0.2 (0-2) % Neut # (Auto) 21000 H (5828-3390) /uL Lymph # (Auto) 700 L (2967-5279) /uL [place] # (Auto) 300 (0-900) /uL Eos # (Auto) 0 (0-450) /uL Baso # (Auto) 0 (0-100) /uL Sodium 136 L (137-145) mmol/L Potassium 3.7 (3.4-5.1) mmol/L Chloride 104 (98-107) mmol/L Carbon Dioxide 20 L (22-32) mmol/L BUN 17 (9-20) mg/dL Creatinine 0.79 (0.66-1.25) mg/dL Estimated GFR > 60.0 (>60) mL/min BUN/Creatinine Ratio 21.5 (6-22) Glucose 163 H (80-110) mg/dL Calcium 9.9 (8.4-10.2) mg/dL Total Bilirubin 0.7 (0.2-1.3) mg/dL AST 32 (17-59) IU/L ALT 30 (<50) IU/L Alkaline Phosphatase 74 (38-126) U/L Total Protein 7.9 (6.3-8.2) g/dL Albumin 4.6 (3.5-5.0) g/dL Globulin 3.3 (1.7-4.1) g/dL Albumin/Globulin Ratio 1.4 (1.0-2.8) Lipase 60 (23-300) U/L Urine RBC 5-10/hpf H (0-5/HPF) Urine WBC 1-5/hpf (0-5/HPF) Urine Bacteria Many (>30) H (None) Ur Culture Indicated? Specimen cultured Urine Dip Bedside Urine Glucose Negative Bedside Urine Bilirubin - Negative Bedside Urine Ketone +++ 80 Urine Specific [place] 1.010 Bedside Urine Occult Blood +++ Bedside Urine pH 7.5 Bedside Urine Protein - Negative Bedside Urine Urobilinogen - Negative Bedside Urine Nitrite + Positive Bedside Urine Leukocytes - Negative Esterase Imaging Data CT scan - abdomen/pelvis: Radiologist's Impression: Air within the bladder may be secondary to recent instrumentation or cystitis. Correlate with urinalysis. Mild mesenteric panniculitis which is typically a self-limiting nonspecific inflammatory condition. MDM Narrative Medical decision making narrative: Patient's CT scan does not show any signs of An emergent surgical issue. He does have air in his bladder which could be related to the known fistula. He also has nitrite positive urine. He has been on Keflex in the past. He has also been on Cipro in the past. He has not vomited. Still having some nausea despite the medications but he was able to tolerate his antibiotics here in the ER. Will send home with a prescription for antibiotics and also nausea medicine. No indication for admission to the hospital. No indication for surgical consultation emergently here in the ER. He is given return precautions. He expressed understanding agreement. Discharge Plan Departure Patient Disposition: Home Clinical Impression: Urinary tract infection, Mesenteric panniculitis, Nausea and vomiting Instructions: DI for Urinary Tract Infection (UTI), DI for Nausea -- Adult, DI for Vomiting -- Adult Activity Restrictions/Additional Instructions: Your workup here in the emergency department does show that you have a urinary tract infection that does require antibiotics. Your CT scan is reassuring. Does show what is called mesenteric panniculitis which is a self-limiting nonspecific inflammatory condition. Your symptoms should improve within the next couple days. A prescription for antibiotics was electronically transmitted to the pharmacy of your choice. Contact your primary provider for follow-up. Return to the emergency department for any new or worsening symptoms Prescriptions: New cephalexin 500 mg tablet 500 mg PO Q12H 7 Days Qty: 14 RF: 0 ondansetron 4 mg tablet,disintegrating 4 mg PO Q6H PRN (Reason: nausea and vomiting) Qty: 14 RF: 0 No Action lisinopril 10 mg tablet 10 mg PO DAILY RF: 0 Referrals: Juanito Bryant MD [Primary Care Provider] -
[2020-10-31] MEDS: ONDANSETRON 4 MG/2 ML INJ IV ×2 (00:35→02:22)
[2020-10-31] MEDS: SODIUM CHLORIDE 0.9% 1,000 ML 1000 ML IV (00:39)
[2020-10-31 00:57] LABS: Add Manual Diff / Slide Review NO; Basophils Absolute Auto 0 /uL (0-100); Basophils Percent Auto 0.2 % (0-2); Eosinophils Absolute Auto 0 /uL (0-450); Eosinophils Percent Auto 0.1 % (2-4); Hematocrit 44.1 % (41-53); Hemoglobin 14.9 g/dL (13.5-17.5); Lymphocytes Absolute Auto 700 /uL (1100-4500); Lymphocytes Percent Auto 5.8 % (25-40); Mean Corpuscular HGB Conc 33.7 % (30-36); Mean Corpuscular Volume 86.2 fL (80-100); Monocytes Absolute Auto 300 /uL (0-900); Monocytes Percent Auto 2.7 % (3-14); Neutrophils Absolute Auto 11500 /uL (1500-7000); Neutrophils Percent Auto 91.2 % (50-75); Platelet Count 312 X10^3/uL (150-400); Red Blood Cell Count 5.12 X10^6/uL (4.5-5.9); Red Cell Distribution Width 13.8 % (11.6-14.8); White Blood Cell Count 12.6 X10^3/uL (4.5-11.0)
[2020-10-31 01:02] LABS: Alanine Aminotransferase 30 IU/L (<50); Albumin 4.6 g/dL (3.5-5.0); Albumin Globulin Ratio 1.4 (1.0-2.8); Alkaline Phosphatase 74 U/L (38-126); Aspartate Aminotransferase 32 IU/L (17-59); BUN Creatinine Ratio 21.5 (6-22); Bilirubin Total 0.7 mg/dL (0.2-1.3); Blood Urea Nitrogen 17 mg/dL (9-20); Calcium 9.9 mg/dL (8.4-10.2); Carbon Dioxide 20 mmol/L (22-32); Chloride 104 mmol/L (98-107); Estimated Glomerular Filt Rate > 60.0 mL/min (>60); Globulin 3.3 g/dL (1.7-4.1); Glucose 163 mg/dL (80-110); HEMOLYSIS < 15 (0-50); Lipase 60 U/L (23-300); Potassium 3.7 mmol/L (3.4-5.1); Sodium 136 mmol/L (137-145); Total Protein 7.9 g/dL (6.3-8.2)
[2020-10-31 02:20] LABS: Bacteria Urine Many (>30); Culture Indicated Urine Specimen Cultured; RBC Urine 5-10/HPF (0-5/HPF); WBC Urine 1-5/HPF (0-5/HPF)
[2020-10-31] MEDS: cephALEXin 250 MG CAPSULE 500 MG PO (02:22)
[2020-10-31] MEDS: ONDANSETRON 4 MG ODT PREPACK 1 BOTTLE MISC (02:22)
[2020-10-31] MEDS: METOCLOPRAMIDE 10 MG/2 ML INJ IV (02:55)
== END 2020-10-31 03:23 | disposition home or self-care (01) ==
PROVIDERS: Emergency Provider Emergency Medicine; PCP Family Medicine
DX: N39.0 Urinary tract infection, site not specified (principal); K65.4 Sclerosing mesenteritis
CPT/HCPCS: 36415; 74177; 80053; 81003; 81015; 83690; 85025; 87077; 87086; 87186; 96361; 96374; 96375; 96376; 99284; J2405; J2765; Q9967

== ENCOUNTER 2023-03-22 19:10 | Emergency (ER) | payer MEDICARE, OTHER, SELFPAY ==
[2018-12-13 13:54] VITALS: BMI 28.3
[2023-03-22] VITALS (7 sets, daily range): BP systolic 107–130; BP diastolic 56–70; PULSE 75–95; RESP 16–21; TEMP 37.7; O2SAT 93–98; BMI 25.0
[2023-03-22] MEDS: SODIUM CHLORIDE 0.9% 1,000 ML 1000 ML IV (22:07)
[2023-03-22 22:11] LABS: Add Manual Diff / Slide Review NO; Basophils Absolute Auto 100 /uL (0-100); Basophils Percent Auto 0.8 % (0-2); Eosinophils Absolute Auto 100 /uL (0-450); Eosinophils Percent Auto 0.6 % (2-4); Hematocrit 41.6 % (41-53); Hemoglobin 14.4 g/dL (13.5-17.5); Lymphocytes Absolute Auto 200 /uL (1100-4500); Lymphocytes Percent Auto 1.3 % (25-40); Mean Corpuscular HGB Conc 34.5 % (30-36); Mean Corpuscular Hemoglobin 31.7 PG (26-34); Mean Corpuscular Volume 91.7 fL (80-100); Monocytes Absolute Auto 200 /uL (0-900); Monocytes Percent Auto 1.4 % (3-14); Neutrophils Absolute Auto 13800 /uL (1500-7000); Neutrophils Percent Auto 95.9 % (50-75); Platelet Count 208 X10^3/uL (150-400); Red Blood Cell Count 4.54 X10^6/uL (4.5-5.9); Red Cell Distribution Width 13.2 % (11.6-14.8); White Blood Cell Count 14.4 X10^3/uL (4.5-11.0)
--- NOTE | 2023-03-22 22:23 | ED.FALL ---
HPI - Fall General Chief Complaint: Fall Stated Complaint: fever, fall Time Seen by Provider: 03/22/23 21:29 Source: patient Mode of arrival: Wheelchair Limitations: no limitations History of Present Illness HPI Narrative: Patient is a 67-year-old male who is here for evaluation of a syncopal episode. Patient states that he worked outside quite a bit today. It was warm outside. He thought that he was staying hydrated. He stated that after he worked outside all day he went for a 4 mi walk. He stated that he was feeling tired. He went to a local restaurant. Eight a very small amount. Was getting quite nauseous. He states that he did pass out. Prior to passing out did not have chest pain or shortness of breath or dizziness. He woke up realizing where he was with people around him. He states he did hit his head. He is no neck pain. No extremity injuries. No back pain. He did state that he had some blood in his urine earlier today. Last week he saw his primary doctor. Was told that he had a urinary tract infection. Prescription for antibiotics was called into the pharmacy but he has not received a call from the pharmacy to pick those up. He states he knows he is a fistula that causes him to have urinary tract infections. He is not had surgery to have this repaired. Related Data Home Medications Medication Instructions Recorded Confirmed lisinopril 10 mg tablet 10 mg PO DAILY 05/29/18 05/29/18 Previous Rx's Medication Instructions Recorded ondansetron 4 mg disintegrating 4 mg PO Q6H PRN nausea and 10/31/20 tablet vomiting #14 tabs Allergies Allergy/AdvReac Type Severity Reaction Status Date / Time No Known Drug Allergies Allergy Verified 12/13/18 13:19 Patient History Medical History Fistula HTN (hypertension) Surgical History History of knee surgery Family History Mother Cancer Father Cancer Brother Cancer Social History household members: spouse Smoking Status: Never smoker alcohol intake: former Smoking Status: Never smoker alcohol intake frequency: a few times a week Substance Use Type: does not use Exam Initial Vital Signs Initial Vital Signs: Vital Signs Temperature 99.8 F H 03/22/23 19:21 Pulse Rate 95 H 03/22/23 19:21 Respiratory Rate 16 03/22/23 19:21 Blood Pressure 130/70 03/22/23 19:21 Pulse Oximetry 98 03/22/23 19:21 Oxygen Delivery Method Room Air 03/22/23 19:21 HENMT Head: normal to inspection and normocephalic Resp Effort & Inspection: normal respiratory effort Auscultation: clear to auscultation bilaterally Cardio Rate: regular rate Rhythm: regular rhythm GI Inspection: normal to inspection Skin General: no rashes or lesions noted Neuro General: patient alert, patient awake, patient oriented x3 and moves all extremities Extrem General: normal to inspection and capillary refill normal Scores GCS [place] coma scale eye opening: Spontaneous Fil[place] coma scale verbal response: Orientated Filiberto coma scale motor response: Obey commands Vul[place] coma scale total score: 15 Course Orders Ordered: ED Orders 03/22/23 21:57 Complete Blood Count AUTO DIFF Stat Comprehensive Metabolic Panel Stat Lipase Stat Troponin & CK Cardiac Panel Stat 03/22/23 22:24 EKG-12 Lead Stat 03/22/23 22:39 Covid-19 + FLU A/B + RSV - PCR Stat 03/22/23 22:51 Urine Culture Stat Urine Microscopic Stat Discontinued Medications Sodium Chloride (Normal Saline 0.9%) 1,000 mls @ 1,000 mls/hr IV BOLUS ONE Stop: 03/22/23 22:28 Last Infusion: 03/22/23 22:41 Dose: 0 mls/hr Documented By: Admin: 03/22/23 22:07 Dose: 1,000 mls/hr Documented By: MYNOR Vital Signs Vital signs: Vital Signs - 8 hr 03/22/23 21:50 03/22/23 22:00 03/22/23 22:30 Pulse Rate 85 87 85 Respiratory Rate 17 20 21 Blood Pressure Pulse Oximetry 97 96 96 Oxygen Delivery Method Room Air Room Air Room Air 03/22/23 22:51 03/22/23 22:51 03/22/23 23:00 Pulse Rate 77 Respiratory Rate 18 Blood Pressure 108/57 L 107/56 L Pulse Oximetry 95 Oxygen Delivery Method Room Air 03/22/23 23:00 03/22/23 23:30 03/22/23 23:30 Pulse Rate 82 75 Respiratory Rate 20 20 Blood Pressure 113/58 L Pulse Oximetry 93 94 Oxygen Delivery Method Room Air Room Air 03/23/23 00:00 03/23/23 00:00 Pulse Rate 76 Respiratory Rate 23 Blood Pressure 148/72 H Pulse Oximetry 99 Oxygen Delivery Method Room Air MDM - Fall Lab Data Attestation: I reviewed the patient's lab results. 03/22/23 21:57 03/22/23 21:57 Labs: Lab Results 03/22/23 03/22/23 03/22/23 Range/Units 21:57 21:57 21:57 WBC 14.4 H (4.5-11.0) X10^3/uL RBC 4.54 (4.5-5.9) X10^6/uL Hgb 14.4 (13.5-17.5) g/dL Hct 41.6 (41-53) % MCV 91.7 (80-100) fL MCH 31.7 (26-34) PG MCHC 34.5 (30-36) % RDW 13.2 (11.6-14.8) % Plt Count 208 (150-400) X10^3/uL Neut % (Auto) 95.9 H (50-75) % Lymph % (Auto) 1.3 L (25-40) % [place] % (Auto) 1.4 L (3-14) % Eos % (Auto) 0.6 L (2-4) % Baso % (Auto) 0.8 (0-2) % Neut # (Auto) 89489 H (6850-1455) /uL Lymph # (Auto) 200 L (4390-5368) /uL [place] # (Auto) 200 (0-900) /uL Eos # (Auto) 100 (0-450) /uL Baso # (Auto) 100 (0-100) /uL Sodium 133 L (137-145) mmol/L Potassium 3.6 (3.4-5.1) mmol/L Chloride 101 (98-107) mmol/L Carbon Dioxide 25 (22-32) mmol/L BUN 15 (9-20) mg/dL Creatinine 0.70 (0.66-1.25) mg/dL Estimated GFR > 60 (>60) mL/min BUN/Creatinine Ratio 21.4 (6-22) Glucose 207 H (80-110) mg/dL Calcium 9.4 (8.4-10.2) mg/dL Total Bilirubin 1.3 (0.2-1.3) mg/dL AST 37 (17-59) IU/L ALT 30 (<50) IU/L Alkaline Phosphatase 52 (38-126) U/L Total Creatine Kinase 161 (55-170) U/L Troponin I 0.018 (0.01-0.034) ng/mL Total Protein 7.4 (6.3-8.2) g/dL Albumin 4.2 (3.5-5.0) g/dL Globulin 3.2 (1.7-4.1) g/dL Albumin/Globulin Ratio 1.3 (1.0-2.8) Lipase 31 (23-300) U/L Urine RBC (0-5/HPF) Urine WBC (0-5/HPF) Ur Squamous Epith Cells (0-5/HPF) Urine Bacteria (None) Ur Culture Indicated? SARS-CoV-2 (PCR) (Negative) Influenza A (RT-PCR) (NEGATIVE) Influenza B (RT-PCR) (NEGATIVE) RSV (PCR) (Negative) 03/22/23 03/22/23 Range/Units 22:39 22:51 WBC (4.5-11.0) X10^3/uL RBC (4.5-5.9) X10^6/uL Hgb (13.5-17.5) g/dL Hct (41-53) % MCV (80-100) fL MCH (26-34) PG MCHC (30-36) % RDW (11.6-14.8) % Plt Count (150-400) X10^3/uL Neut % (Auto) (50-75) % Lymph % (Auto) (25-40) % [place] % (Auto) (3-14) % Eos % (Auto) (2-4) % Baso % (Auto) (0-2) % Neut # (Auto) (5166-3470) /uL Lymph # (Auto) (2715-4134) /uL [place] # (Auto) (0-900) /uL Eos # (Auto) (0-450) /uL Baso # (Auto) (0-100) /uL Sodium (137-145) mmol/L Potassium (3.4-5.1) mmol/L Chloride (98-107) mmol/L Carbon Dioxide (22-32) mmol/L BUN (9-20) mg/dL Creatinine (0.66-1.25) mg/dL Estimated GFR (>60) mL/min BUN/Creatinine Ratio (6-22) Glucose (80-110) mg/dL Calcium (8.4-10.2) mg/dL Total Bilirubin (0.2-1.3) mg/dL AST (17-59) IU/L ALT (<50) IU/L Alkaline Phosphatase (38-126) U/L Total Creatine Kinase (55-170) U/L Troponin I (0.01-0.034) ng/mL Total Protein (6.3-8.2) g/dL Albumin (3.5-5.0) g/dL Globulin (1.7-4.1) g/dL Albumin/Globulin Ratio (1.0-2.8) Lipase (23-300) U/L Urine RBC 1-5/hpf (0-5/HPF) Urine WBC 1-5/hpf (0-5/HPF) Ur Squamous Epith Cells None seen (0-5/HPF) Urine Bacteria Many (>30) H (None) Ur Culture Indicated? Specimen cultured SARS-CoV-2 (PCR) Negative (Negative) Influenza A (RT-PCR) Flu a negative (NEGATIVE) Influenza B (RT-PCR) Flu b negative (NEGATIVE) RSV (PCR) Negative (Negative) Urine Dip Bedside Urine Glucose Negative Bedside Urine Bilirubin - Negative Bedside Urine Ketone - Negative Urine Specific [place] 1.000 Bedside Urine Occult Blood - Negative Bedside Urine pH 6.0 Bedside Urine Protein +++ 300 Bedside Urine Urobilinogen - Negative Bedside Urine Nitrite - Negative Bedside Urine Leukocytes - Negative Esterase ECG Data Attestation: I personally reviewed and interpreted this ECG as follows: Interpretation: Sinus rhythm Ventricular rate is 74 First-degree AV block TX interval 222 milliseconds Left axis deviation Left bundle-branch block MDM Narrative Medical decision making narrative: Here in the emergency department the patient has fairly unremarkable labs. He does have bacteria in his urine and also hematuria although his primary doctor has already written him a prescription for antibiotics. He has a leukocytosis which could very well be from this urinary tract infection. He is no other source of infection found in the exam. Patient states he does feel better after fluids. He thinks that he just did too much today with Luke warmth was and that is what caused him to pass out. Had a discussion with him regarding his symptoms and he was instructed to contact his primary doctor for follow-up to discuss further workup to include potentially stress test, echocardiogram and maybe a Holter monitor. He was given return precautions. He expressed understanding and agreement. Discharge Plan Departure Patient Disposition: Home Clinical Impression: Syncope, Hematuria Instructions: DI for Syncope in Adults (Fainting), DI for Hematuria Activity Restrictions/Additional Instructions: I do recommend that you take the antibiotics that was prescribed by your primary doctor. Be sure that you increase your fluid intake and try to stay cool for the next couple days. I do recommend you contact your primary doctor for follow-up. Return to the emergency department for new or worsening symptoms. Prescriptions: No Action ondansetron 4 mg tablet,disintegrating 4 mg PO Q6H PRN (Reason: nausea and vomiting) Qty: 14 0RF lisinopril 10 mg tablet 10 mg PO DAILY Referrals: Juanito Bryant MD [Primary Care Provider] - Stand Alone Forms: Patient Portal/API
[2023-03-22 22:28] LABS: Alanine Aminotransferase 30 IU/L (<50); Albumin 4.2 g/dL (3.5-5.0); Albumin Globulin Ratio 1.3 (1.0-2.8); Alkaline Phosphatase 52 U/L (38-126); Aspartate Aminotransferase 37 IU/L (17-59); BUN Creatinine Ratio 21.4 (6-22); Bilirubin Total 1.3 mg/dL (0.2-1.3); Blood Urea Nitrogen 15 mg/dL (9-20); Calcium 9.4 mg/dL (8.4-10.2); Carbon Dioxide 25 mmol/L (22-32); Chloride 101 mmol/L (98-107); Estimated Glomerular Filt Rate > 60 mL/min (>60); Globulin 3.2 g/dL (1.7-4.1); Glucose 207 mg/dL (80-110); HEMOLYSIS < 15 (0-50); Lipase 31 U/L (23-300); Potassium 3.6 mmol/L (3.4-5.1); Sodium 133 mmol/L (137-145); Total Protein 7.4 g/dL (6.3-8.2)
[2023-03-22 22:45] LABS: Creatine Kinase 161 U/L (55-170)
[2023-03-22 22:58] LABS: Troponin I 0.018 ng/mL (0.01-0.034)
[2023-03-22 23:24] LABS: Bacteria Urine Many (>30); Culture Indicated Urine Specimen Cultured; RBC Urine 1-5/HPF (0-5/HPF); Squamous Epithelial Cell Urine None Seen (0-5/HPF); WBC Urine 1-5/HPF (0-5/HPF)
[2023-03-22 23:42] LABS: Influenza A - CEPHEID Flu A NEGATIVE (NEGATIVE); Influenza B - CEPHEID Flu B NEGATIVE (NEGATIVE); Respiratory Syncytial Virus Negative (Negative)
[2023-03-22 23:44] LABS: COVID-19 CEPHEID 4-PLEX PCR Negative (Negative)
[2023-03-23] VITALS: BP 148/72; PULSE 76; RESP 23; O2SAT 99
== END 2023-03-23 00:34 | disposition home or self-care (01) ==
PROVIDERS: Emergency Provider Emergency Medicine; PCP Family Medicine
DX: R55 Syncope and collapse (principal); R31.9 Hematuria, unspecified; R07.9 Chest pain, unspecified; Z20.822 Contact with and (suspected) exposure to COVID-19
CPT/HCPCS: 0241U; 36415; 80053; 81003; 81015; 82550; 83690; 84484; 85025; 87077; 87086; 87186; 93005; 96360; 99284

== ENCOUNTER → 2023-08-17 09:16 | Outpatient (CLI) | payer MEDICARE, OTHER, SELFPAY ==
[2018-12-13 13:54] VITALS: BMI 28.3
--- NOTE | 2023-08-17 23:26 | DI.NM.S_ITS ---
DATE OF SERVICE: 08/17/2023 PROCEDURE PERFORMED: Pharmacologic vasodilator stress and rest myocardial perfusion imaging with gating to assess ejection fraction and regional wall motion. ORDERING PROVIDER: Huber Mariee MD INDICATIONS: The patient is a 68-year-old male with syncope and newly discovered LBBB. CARDIAC STRESS: Per protocol, 0.4 mg of regadenoson was infused with a normal hemodynamic response. He had no symptoms except minimal dyspnea. His resting ECG showed sinus rhythm with an LBBB, precluding ST-segment analysis. He had no arrhythmias. Per protocol, 25.7 millicuries of technetium-99m Myoview was injected and he was imaged 15 minutes later using a gated SPECT acquisition protocol. Earlier in the day while at rest, he had been injected with 12.5 millicuries of technetium-99m Myoview and was imaged 20 minutes later, again using a gated SPECT acquisition protocol. FINDINGS: 1. Raw data. There is fairly good myocardial tracer uptake. The lung/heart ratio is normal at 0.33 with a normal TID ratio of 0.86. 2. Quantitative gated SPECT: Post-stress ejection fraction is estimated at 72% without any focal wall motion abnormality, although there is a slight dyssynchronous contraction pattern, likely due to the conduction abnormality. The resting ejection fraction is calculated at 54%, although visually appears more similar to that of the post-stress ejection fraction. Left ventricular end-diastolic volume is moderately increased at 182 mL. 3. Myocardial perfusion imaging: Post-stress supine images show a fairly normal myocardial perfusion pattern without any concerning perfusion defects, supported by normal perfusion imaging in the prone position. The resting images show no areas of significant improvement. A mild defect is seen in the distal inferior wall that likely reflects attenuation artifact. IMPRESSION: 1. Normal myocardial perfusion study for ischemia. 2. Mild resting inferior wall defect, likely attributable to diaphragmatic attenuation, but no evidence for myocardial ischemia or previous myocardial infarction. 3. Normal left ventricular systolic function with a mild dyssynchronous contraction pattern but no obvious focal wall motion abnormality. Left ventricular volumes are moderately increased. 4. No angina with pharmacologic vasodilator stress. The presence of left bundle-branch block precludes ST-segment analysis. No arrhythmias were seen. Shar Charlton - RS/matthew/LUZ doc#: [id number]/job#: [id number] dd: 08/17/2023 16:07:00 dt: 08/17/2023 23:12:00 DICTATING MD/COPIES TO: Juanito Magallon MD; Huber Mariee MD COPIES MNE: KEEGAN;
== END ==
LOC: NUCM 09:17
PROVIDERS: PCP Family Medicine; Referring Provider Internal Medicine Cardiovascular Disease; Visit Provider Internal Medicine Cardiovascular Disease
DX: I45.4 Nonspecific intraventricular block (principal); I44.7 Left bundle-branch block, unspecified; R55 Syncope and collapse
CPT/HCPCS: 78452; 93017; A9502; J2785

== ENCOUNTER 2023-08-19 12:32 | Day surgery (SDC) | payer MEDICARE, OTHER, SELFPAY ==
[2018-12-13 13:54] VITALS: BMI 28.3
--- NOTE | 2023-08-19 | PATH_ITS ---
[facility] Accession Number: [id number] No. of containers..01 Tissue . 01 Material submitted: . rectum - RECTAL POLYP . 01 Diagnosis: Rectal Polyp, Biopsy: Hyperplastic polyp. CHIRAG 08/23/2023 1050 Local . 01 Electronically signed: . Alma Rosa Marie MD, Pathologist NPI- [id number] . 01 Gross description: . The specimen is received in formalin labeled with the patient's name, , and rectal polyp, and consists of multiple alvarez soft tissue fragments aggregating to 1.6 x 0.5 x 0.2 cm. Filtered and submitted entirely in cassette A1. ([id number]) /CHIRAG 08/20/20232041 Local . 01 Pathologist provided ICD-10: Z12.11, D12.8 . 01 CPT . 395424 Specimen Comment: A courtesy copy of this report has been sent to [phone] Performed at: 01 [facility] [address] [place] [address], [place], [place] [id number] MD Geovanny Fuller MD Phone: [phone]
[2023-08-19] MEDS: LACTATED RINGERS 1,000 ML 42 ML IV (12:55)
[2023-08-19 13:03] VITALS: BP 191/98; PULSE 72; RESP 20; TEMP 36.2; O2SAT 98; BMI 25.3
--- NOTE | 2023-08-19 13:23 | P.HP_ITS ---
History of Present Illness History of Present Illness Date Patient Seen: 08/19/23 Time Patient Seen: 13:23 Chief complaint: Screening Colonoscopy Narrative: 68-year-old man with a history of diverticular disease here for screening colonoscopy/preoperative planning. He has a known colovesicular fistula and a coming sigmoid colectomy next month. Currently without abdominal pain or fever [facility] Medical History Fistula HTN (hypertension) Surgical History History of knee surgery Family History Mother Cancer Father Cancer Brother Cancer Prostate cancer Social History marital status: household members: none lives independently: Yes occupational status: employed Smoking Status: Never smoker alcohol intake: current substance use type: does not use Meds Home Medications and Allergies Home Medications Medication Instructions Recorded Confirmed Type lisinopril 10 mg tablet 10 mg PO DAILY 05/29/18 08/19/23 History ascorbate calcium (vitamin C) PO 07/07/23 07/07/23 History cholecalciferol (vitamin D3) 1 tab PO DAILY 07/07/23 08/19/23 History glucos sul 2RVy-pow-udici-C-Mn PO 07/07/23 07/07/23 History [Glucosamine Chondroitin] ivdfsmrd-ifezhabl-pyamp acid 400 1 tab PO DAILY 07/07/23 08/19/23 History mcg-vit K 20 mcg-lycop 300 mcg tablet (One-A-Day Men's Multivitamin) neomycin 500 mg tablet 1 g (2 x 500 mg) PO TID 3 doses #6 07/08/23 08/19/23 Rx tabs sodium,potassium,mag sulfates 17.5 See Rx Instructions PO .COMPLEX 07/08/23 07/08/23 Rx gram-3.13 gram-1.6 gram oral soln #354 mL (Suprep Bowel Prep Kit) Allergies Allergy/AdvReac Type Severity Reaction Status Date / Time No Known Drug Allergies Allergy Verified 08/19/23 13:01 Exam Vital Signs (past 8 hours): - 08/19/23 13:03 Temperature 97.2 F L Pulse Rate 72 Respiratory Rate 20 Blood Pressure 191/98 H Pulse Oximetry 98 Oxygen Delivery Method Room Air Oxygen Delivery Method Room Air Narrative Exam Narrative: General adult man alert oriented no acute distress Chest nonlabored respiration Extremities warm well perfused Assessment & Plan Assessment & Plan narrative: The patient requires colorectal screening and colonoscopy is recommended. Technical details were discussed. Risks, benefits, alternatives explained. Risks including but not limited to myocardial infarction, aspiration, bleeding, pain, missed lesion, incomplete examination, need for further radiographic studies, colonic perforation, and need for major abdominal surgery were discussed. All questions were answered to their satisfaction, and they are in agreement with this plan.
--- NOTE | 2023-08-19 14:06 | P.OP.COLON_ITS ---
Operative Date/Time/Diagnoses Date of procedure: 08/19/23 Time of procedure: 14:06 Pre-op diagnosis: Colovesicular fistula Procedure & Clinicians Study performed: Colonoscopy Same procedure as scheduled: Yes Indications: 68-year-old man with a known colovesicular fistula here for screening colonoscopy and preoperative evaluation Surgeon: Raleigh De La Torre Procedure Notes Procedure in detail: The history and physical was performed/updated and the patient is ASA class is 2. The procedure was discussed in detail with the patient. Potential risks complications including infection, bleeding, missed diagnosis, perforation, need for surgery, and were explained. Their questions were answered and informed consent was obtained. Patient was brought to the procedure room and placed standard monitoring equipment. The patient's vital signs were monitored continuously throughout the entire procedure. Prior to starting time-out was performed. The patient was placed in the left lateral recumbent position. Procedural sedation was administered by anesthesia. Examination began with a thorough inspection of the perianal area there was no evidence of fissures, fistulae, external hemorrhoids or cutaneous malignancy. The colonoscopy scope was then placed into the anal canal and was advanced to the cecum, which was identified by the ileocecal valve, the appendiceal orifice and the confluence of the taenia. The scope was then slowly withdrawn examining colon thoroughly in all directions, irrigating it of any residual stool. The scope was retroflexed within the rectum The patient tolerated the procedure well. They will be discharged once criteria are met. The prep was of good/excellent quality. The withdrawl time was 7 minutes. FINDINGS * Rectum-8 mm polyp removed with cold snare * Sigmoid area of extensive diverticulosis extending proximally 20 cm in length. No signs of active disease. The site of the fistula was not observed on colonoscopy. Minimal diverticulosis through the remainder of the colon * Internal hemorrhoids Specimen(s): other (Rectal polyp) Complications: none Impression: Diverticulosis Post-procedure Recommendations: High fiber diet Plan for aftercare: Sigmoid colectomy next month Disposition: same day surgery
[2023-08-19 14:09] VITALS: BP 149/99; PULSE 83; RESP 16; TEMP 36.6; O2SAT 100
[2023-08-19 14:15] VITALS: BP 135/72; PULSE 93; RESP 16; TEMP 36.1; O2SAT 100
[2023-08-19 14:20] VITALS: BP 143/78; PULSE 78; RESP 16; TEMP 36.8; O2SAT 98
[2023-08-19 14:26] VITALS: BP 170/98; PULSE 78; RESP 16; TEMP 36.6; O2SAT 98
== END 2023-08-19 14:36 | disposition home or self-care (01) ==
PROVIDERS: PCP Family Medicine; Referring Provider Surgery; Visit Provider Surgery
PROC: 0DJD8ZZ Inspection of Lower Intestinal Tract, Via Natural or Artificial Opening Endoscopic (ICD-10-PCS; CPT 45378; principal; 2023-08-19 13:45)
DX: Z12.11 Encounter for screening for malignant neoplasm of colon (principal); N32.1 Vesicointestinal fistula; K57.30 Diverticulosis of large intestine without perforation or abscess without bleeding; K64.8 Other hemorrhoids; K62.1 Rectal polyp
CPT/HCPCS: 45385; J2704

== ENCOUNTER 2023-09-14 07:19 | Inpatient (IN) | payer MEDICARE, OTHER, SELFPAY ==
[2018-12-13 13:54] VITALS: BMI 28.3
[2023-09-05 09:50] VITALS: BMI 25.4
[2023-09-14] VITALS (15 sets, daily range): BP systolic 127–169; BP diastolic 77–98; PULSE 62–78; RESP 12–18; TEMP 36.3–37.7; O2SAT 94–98; BMI 25.4
--- NOTE | 2023-09-14 | PATH_ITS ---
[facility] Accession Number: [id number] No. of containers..01 Tissue . 01 Material submitted: . colon - SIGMOID COLON . 01 Diagnosis: Sigmoid Colon, Segmental Resection: Extensive diverticulosis with diverticulitis and pericolorectal abscess; please see comment. Serositis. Negative for dysplasia or malignancy. MRV 09/21/2023 1546 Local . 01 Comment: The clinical history of colovesicular fistula is noted. The grossly identified area of defect, inked orange, is associated with the area of pericolorectal abscess with reactive stromal changes and serositis. A well formed fistulous tract is not identified in the bowel wall. . . 01 Electronically signed: . Shannon Claire MD, Pathologist NPI- [id number] . 01 Gross description: . The specimen is received in formalin labeled with the patient's name, , and sigmoid colon, consists of an unoriented segment of bowel measuring 9.6 cm in length by 4.2 cm in average diameter, with a moderate amount of attached adipose. The serosa is alvarez and roughened with a presumed full thickness defect measuring 0.7 cm in greatest dimension. No staple line is inked blue, the opposite staple line is black, and the defect is inked orange. The defect measures 2.2 cm from the nearest blue-inked margin. The mesenteric margin is inked green. The lumen contains minimal fecal material, and the mucosa is pink to red with edematous folds. Hyperemic mucosa is noted adjacent to the aforementioned full thickness defect, just probe patent. No lesions are grossly identified. The wiley are diffusely firm and thickened, measuring up to 0.8 cm in maximum thickness, with multiple diverticula measuring up to 1.4 cm in depth. Palpation reveals six alvarez lymph node candidates ranging from 0.1 to 0.3 cm in greatest dimension. . Head Scorer sections are submitted as follows: A1-A2: Rep margins en face. A3-A4: Area of full thickness defect. A5-A7: Diverticula. A8-A9: Full thickness unremarkable sections. A10: Single lymph node candidate and adipose. A11: Two intact lymph node candidates. A12: Three intact lymph node candidates. ([id number]) /MRV 09/15/2023 1251 Local . 01 Pathologist provided ICD-10: N37, K57.20 . 01 CPT . 555131 Specimen Comment: A courtesy copy of this report has been sent to [phone] Performed at: 01 [facility] [address] [place] [address], [place], [place] [id number] MD Geovanny Fuller MD Phone: [phone]
[2023-09-14] MEDS: LACTATED RINGERS 1,000 ML 21 ML IV ×2 (08:18→10:24)
[2023-09-14] MEDS: ACETAMINOPHEN 325 MG TABLET 975 MG PO (08:19)
--- NOTE | 2023-09-14 08:34 | PM.HP.1 ---
History of Present Illness History of Present Illness Date Patient Seen: 09/14/23 Time Patient Seen: 08:35 Chief complaint: Lap Sigmoid Colectomy Narrative: 68 y.o man with a known chronic colovesicular fistula here for laparoscopic assisted sigmoid colectomy. No interval changes in health. Please refer to the H&P from Jul 2023 for further detail. [facility] Medical History History of COVID-19 (~2021) Elevated PSA LBBB (left bundle branch block) Fistula HTN (hypertension) Surgical History Hx of arthroscopy of left knee (1986) Hx of colonoscopy (08/19/23) Family History Mother Cancer Father Cancer Brother Cancer Prostate cancer Social History marital status: household members: none lives independently: Yes occupational status: employed Smoking Status: Never smoker alcohol intake: current substance use type: does not use Meds Home Medications and Allergies Home Medications Medication Instructions Recorded Confirmed Type lisinopril 10 mg tablet 10 mg PO DAILY 05/29/18 09/14/23 History rmyedada-txiiqajb-pssmo acid 400 1 tab PO DAILY 07/07/23 09/14/23 History mcg-vit K 20 mcg-lycop 300 mcg tablet (One-A-Day Men's Multivitamin) cholecalciferol (vitamin D3) 10 75 mcg PO DAILY 09/05/23 09/14/23 History mcg (400 unit) capsule (Vitamin D3) glucosamine sulf dipot 2 cap PO DAILY 09/05/23 09/14/23 History chlr,msm,chond 550 mg-C 30 mg-nilesh 1 mg capsule (Glucosamine Chondroitin) ibuprofen 200 mg tablet 400 mg PO Q6H PRN Pain 09/05/23 09/14/23 History metronidazole 500 mg tablet mg PO 09/14/23 History metronidazole 500 mg tablet mg PO 09/14/23 History Allergies Allergy/AdvReac Type Severity Reaction Status Date / Time No Known Drug Allergies Allergy Verified 09/14/23 08:02 Exam Vital Signs (past 8 hours): - 02/07/24 08:13 Temperature 98.4 F Pulse Rate 64 Respiratory Rate 16 Blood Pressure 164/88 H Pulse Oximetry 98 Oxygen Delivery Method Room Air Oxygen Delivery Method Room Air Narrative Exam Narrative: General adult man alert oriented no acute distress Chest nonlabored respiration Extremities warm well perfused Assessment & Plan Assessment and plan (1) Fistula: Problem details: Colovesicular Status: Acute Assessment & Plan narrative: 68-year-old with a chronic colovesicular fistula here for an elective laparoscopic assisted sigmoid colectomy. Overview of the operation was once again discussed with the patient and his sister at bedside. We discussed operative risks including but not limited to infection, hemorrhage, anastomotic leak damage to surrounding structures, ureter injury, conversion open. His questions have been answered he is in agreement with this plan. He provides his written and verbal consent to proceed.
[2023-09-14] MEDS: PIPERACILLIN/TAZO 3.375 GM in SODIUM CHLORIDE 0.9% 100 ML IV ×3 (08:55→21:16)
--- NOTE | 2023-09-14 09:32 | SUR.OPER ---
Lithotomy on padded OR bed, head on pillow, arms TUCKED AT SIDES WITH DRAW SHEET AND GEL PADS. Legs secured in padded yellow fins stirrups.
[2023-09-14] MEDS: BUPIVACAINE 0.25% (PF) VIAL 30 ML INJ (09:52)
--- NOTE | 2023-09-14 11:57 | PC.NURSE ---
Dy shift: Pt not in room 203 at this time (1200).
--- NOTE | 2023-09-14 12:55 | P.OP_ITS ---
Operative Date/Time/Diagnoses Date of procedure: 09/14/23 Time of procedure: 12:55 Pre-op diagnosis: Colovesicular fistula Post-op diagnosis: other (Colovesicular fistula, umbilical hernia) Procedure & Clinicians Procedure: Laparoscopic assisted sigmoid colectomy Closure of bladder fistula Open umbilical hernia repair Same procedure as scheduled: Yes Indications: 68-year-old man with a chronic colovesicular fistula here for elective repair Surgeon: Raleigh De La Torre System Dispatcher: Jessica Jensen Anesthesia Type: General Operative Notes Findings: 12 cm segment densely fibrotic sigmoid colon adherent to the bladder and left pelvic sidewall Estimated Blood Loss (mL): 50 Procedure in detail: Patient was brought to the operating room placed supine on the table. Bilateral lower extremity compression devices were applied. He received 3.375 g of Zosyn. General anesthesia was induced he was intubated with an endotracheal tube. He was then positioned into lithotomy position and appropriately padded. He was prepped and draped in sterile fashion and a time-out was performed. A infraumbilical incision was made the abdomen was entered atraumatically and pneumoperitoneum was established. Additional working ports were placed in the suprapubic and right lower quadrant. Her general inspection of the abdomen was made and was notable only for adhesions between the left abdominal wall in the sigmoid colon. We began with mobilization of the descending colon. Following along the white line of Toldt the colon was mobilized to the level of the spleen. We then turned our attention to the pelvis where there were dense adhesions between the distal colon the bladder and the left pelvic sidewall. Using blunt dissection combination of peanut and suction school community relations coordinator we are able to make some progress but could not adequately dissect the colon from the bladder. We made a generous midline incision and a self-retaining retractor placed. Using finger fracture the plane between the bladder and colon was developed bluntly. We are able to safely visualize the left ureter as it passed over the left iliac vessels and it was kept posterior out of harm's way. A window within the mesentery of the proximal colon was made and then the colon was divided using the curved linear stapler. The mesentery to the bowel was the n taken close to to the bowel wall using the LigaSure device and working to approximally the rectosigmoid junction. The tissue below the fistula was soft and pliable and again here window was made and then the bowel was divided using the stapler. This point we could clearly identify the location of the fistula in both the colon as well as the dome of the bladder. The the bladder was closed in a single layer using running Monocryl suture. The rectum was sized and accommodated 33 mm 31 mm EEA stapler was selected. The staple line from the proximal colon was resected and pursestring was formed with 3-0 PDS suture. The anvil was placed into the colon and secured in position. The anvil was mated with the stapler after its point was deployed under direct visualization. They were mated together and we ensured there was no twist tension between the 2 structures and the stapler was fired. It was removed demonstrated to donuts the distal being intact the proximal being nearly intact. At this point leak test was performed. Colonoscopy was inserted into the rectum and insufflation was applied while the anastomosis was held under irrigant. There was no evidence of leak. Gown and gloves were changed. The abdomen was then lavaged copiously hemostatic was checked once again. This point we freed the umbilical hernia sac from the fascia and the fascia was closed in a running fashion using 1. PDS suture in approximally a 41 closure ratio. The umbilicus was then tacked using Vicryl suture the skin was irrigated and the skin was closed using keyona. The assistance of Dr. Jensen was critical to this operation for her help with exposure retraction and completion of the anastomosis. Complications: none Post-operative Condition: stable Disposition: Acute Care
[2023-09-14] MEDS: DEXTROSE 5%-0.45% NS 1,000 ML 100 ML IV ×2 (13:21→23:56)
--- NOTE | 2023-09-14 13:33 | PC.NURSE ---
Day shift: In room from PACU at approx 1320. Denies any pain or nausea. Tolerating ice chips. Clear liquid diet per MD. IV patent and fluids going per OCT. 2 lap sites and small midline w/ Aquacel are CDI. BP 160/90. Other VS WNL. Oriented to room and call light. AGrees to not get OOB w/o help from staff. Kaminski patent and draining clear yellow to gravity. Pt's Sister in room for support.
--- NOTE | 2023-09-14 14:35 | PT.IIE ---
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) Surgery Performed Operation Date: 09/14/23 08:45 Actual Procedures p Laparoscopic Sigmoid Colectomy - Raleigh De La Torre MD Surgical History (Last Reviewed 09/14/23 @ 08:38 by Raleigh De La Torre MD) Hx of arthroscopy of left knee (1986) Hx of colonoscopy (08/19/23) Medical History (Last Reviewed 09/14/23 @ 08:38 by Raleigh De La Torre MD) Elevated PSA Fistula History of COVID-19 (~2021) HTN (hypertension) LBBB (left bundle branch block) Physical Therapy Inpatient Evaluation/Re-Eval M1 PT/OT-IP Prior Functional Status Start: 09/14/23 15:26 Freq: NEEDED Status: Active Protocol: Document 09/14/23 14:35 AB (Rec: 09/14/23 15:40 AB [id number]) Medical Review Prior Functional Status Medical History Reviewed Yes Communication able to make needs known Mobility and Gait pt stated that he was independent with all mobilities and ambulation without AD; stated that he walks ~ 4 miles daily Social History Household Members none Living Arrangements House Number of Floors (Floors) One Floor Number of Stairs To Enter/Railing? no steps to enter; ramps Home Environment High Toilet,Walk in Shower, Ramp Home Equipment Four Wheel Walker,Shower Seat with Backrest,Hand Held Shower ,Grab Bars Near Toilet,Grab Bars In Shower Additional Social History Comment pt's sister will be staying with him for ~ 1 month to assist M2 PT-IP Current Condition Start: 09/14/23 15:26 Freq: NEEDED Status: Active Protocol: Document 09/14/23 14:35 AB (Rec: 09/14/23 15:40 AB [id number]) Physical Therapy Current Condition Current Condition Evaluation Date 09/14/23 Treatment Diagnosis s/p colectomy; difficulty in walking Onset Date 09/14/23 M3 PT-IP Subjective Start: 09/14/23 15:26 Freq: NEEDED Status: Active Protocol: Document 09/14/23 14:35 AB (Rec: 09/14/23 15:40 AB [id number]) Subjective Physical Therapy Visit Type Type Initial Evaluation Visit Start Time 14:35 Visit Stop Time 15:15 Number of FILM COLOR TESTER Visits 40 Physical Therapy Visit Comments Patient Comments agreeable to do PT Therapy Pain Assessment Pain When Pain Assessed At Rest Pain Present Pain Present Pain Reported Location Abdomen Intensity 2 Scale Used Numeric (0 - 10) Pain Management Techniques Apply Cold,Distraction, Modification of Treatment,Re- positioning,Timing of Activity with Medications M4 PT-IP Mobility and Gait Start: 09/14/23 15:26 Freq: NEEDED Status: Active Protocol: Document 09/14/23 14:35 AB (Rec: 09/14/23 15:40 AB [id number]) PT-Bed Mobility Assessment Rolling Type of Rolling Log Rolling Level of Assist Standby Assistance Supine to Sit Supine to Sit Standby Assistance Sit to Supine Sit to Supine Standby Assistance PT-Transfer Assessment Sit to and From Stand Sit to and from Stand Standby Assistance,Use of Upper Extremities Equipment Transfer Assistive Device Gait Belt Orthotic/Prosthetic Devices or Brace: No Transfers Transfer Destination Toilet Transfer Technique ambulated Transfer Ability Level of Assist Standby Assistance,Use of Upper Extremities Comments Mobility Comments pt supine in bed and agreeable to do PT. Sister in room with pt. obtained PLOF and home set up from pt. Post-op handout provided to pt and educated on abdominal precautions and log roll bed mobility. pt stated that he has been assisting his spouse before who had a stroke and knows how to do log roll bed mobility. BP in supine: 155/80 . pt completed log roll supine to sit SBA. ambulated in room without AD SBA ~ 40 ft. pt then requested to use the toilet and ambulated to the toilet SBA. pt with no LOB. pt was able to manage toileting SBA. pt ambulated out of the toilet SBA towards the bed. completed log roll sit to supine SBA. positioned pt in bed. call light and table placed within reach. informed pt that no further PT intervention needed at this time and pt agreed. pt agreed to ambulate with staff as much as possible. nurse aware. Gait Assessment Gait Gait Assistance Required: Standby Assistance Distance (Feet) 40 Able to Maintain Weight Bearing Status Yes During Gait Assistive Devices Assistive Device None,Gait Belt Orthotic/Prosthetic Devices or Brace: No Factors Limiting Gait Function Factors Limiting Gait Function Pain PT-Balance Assessment Sitting Balance and Reactions Static Sitting Balance Ability Normal Dynamic Sitting Balance Ability Normal Standing Balance and Reactions Static Standing Balance Ability Good Dynamic Standing Balance Ability Good M5 PT-IP Objective Assessments Start: 09/14/23 15:26 Freq: NEEDED Status: Active Protocol: Document 09/14/23 14:35 AB (Rec: 09/14/23 15:40 AB [id number]) Orientation Orientation/Cognition Level of Alertness Confusional State Orientation Name,Age,Birthday,Month,Date, Year,Day of Week,Place, Situation Language Function Ability No Deficits Noted Safety Awareness Understands Safety Issues Memory Description No Deficits Noted Gross Range of Motion Lower Extremity ROM Assessment Within Functional Limits Strength Lower Extremity Strength Assessment Within Functional Limits Coordination Assessment Gross Coordination Gross Coordination WNL Sensation Assessment Sensation Gross Sensation WNL Muscle Tone Muscle Tone WNL Yes M6 PT-IP Treatment Start: 09/14/23 15:26 Freq: NEEDED Status: Active Protocol: Document 09/14/23 14:35 AB (Rec: 09/14/23 15:40 AB [id number]) Physical Therapy Treatment Education Education Provided Precautions,Post-Op Packet, Safety M7 PT-IP Assessment and Plan Start: 09/14/23 15:26 Freq: NEEDED Status: Active Protocol: Document 09/14/23 14:35 AB (Rec: 09/14/23 15:40 AB [id number]) PT Summary Assessment and Plan Potential Rehabilitation Potential Good Status of Condition at Evaluation Stable Summary Impairments Pain,Bed Mobility,Transfers, Gait,Activity Tolerance Assessment Summary pt is a 68 y/o M s/p lap assisted sigmoid colectomy POD 0. pt with abdominal precautions and educated pt on precautions. pt requiring SBA with mobility without AD. SBA provided for safety. pt plans to go home and his sister will be staying with him to assist. no further PT intervention indicated at this time. pt may be independent in room and will ask for staff assistance for ambulation in the hallway for safety. Goals Bed Mobility Goal Independent Transfer Goal Independent Gait Goal Independent Gait Distance 150 Days to Meet Goals 1 Frequency of Treatment Frequency Of Treatment Discharge Recommendations To Nursing Amount of Assist Needed Standby Assistance Discharge Recommendations PT Discharge Recommendations Home with Assistance Transportation Needs at Discharge Private Vehicle
[2023-09-14] MEDS: ACETAMINOPHEN 325 MG TABLET 650 MG PO (16:41)
--- NOTE | 2023-09-14 18:09 | PC.NURSE ---
Day shift: Pt ambulated to ICU area and around North this evening. Tolerated well. RA 97%. Denies any nausea. ABD pain /10. Have given Tylenol per OCT for pain. Tolerating SCD's. IV antibiotic and fluids going per OCT. Call light in reach. Pt is steady on feet. Uses no assisting device. Agrees to not get OOB w/o help from staff. AGrees to also let RN know when pain level at 4/10 or more.
[2023-09-14] MEDS: IBUPROFEN 600 MG TABLET PO (21:15)
[2023-09-14] MEDS: OXYCODONE IR 5 MG TABLET PO (21:15)
[2023-09-14] MEDS: DOCUSATE 100 MG CAPSULE PO (21:16)
[2023-09-15] VITALS (12 sets, daily range): BP systolic 146–160; BP diastolic 74–92; PULSE 66–78; RESP 16–18; TEMP 36.7–36.9; O2SAT 96–100
[2023-09-15] MEDS: ACETAMINOPHEN 325 MG TABLET 650 MG PO ×3 (01:00→17:52)
[2023-09-15] MEDS: OXYCODONE IR 5 MG TABLET PO ×3 (01:01→21:39)
[2023-09-15] MEDS: IBUPROFEN 600 MG TABLET PO ×3 (05:45→21:39)
[2023-09-15 06:21] LABS: Add Manual Diff / Slide Review NO; Basophils Absolute Auto 0 /uL (0-100); Basophils Percent Auto 0.3 % (0-2); Eosinophils Absolute Auto 0 /uL (0-450); Eosinophils Percent Auto 0.3 % (2-4); Hematocrit 39.3 % (41-53); Hemoglobin 13.2 g/dL (13.5-17.5); Lymphocytes Absolute Auto 1400 /uL (1100-4500); Mean Corpuscular HGB Conc 33.7 % (30-36); Mean Corpuscular Hemoglobin 31.4 PG (26-34); Mean Corpuscular Volume 93.2 fL (80-100); Monocytes Absolute Auto 1200 /uL (0-900); Monocytes Percent Auto 12.2 % (3-14); Neutrophils Absolute Auto 7200 /uL (1500-7000); Neutrophils Percent Auto 73.2 % (50-75); Platelet Count 278 X10^3/uL (150-400); Red Blood Cell Count 4.21 X10^6/uL (4.5-5.9); Red Cell Distribution Width 13.5 % (11.6-14.8); White Blood Cell Count 9.8 X10^3/uL (4.5-11.0)
[2023-09-15 07:07] LABS: BUN Creatinine Ratio 11.1 (6-22); Blood Urea Nitrogen 12 mg/dL (9-20); Calcium 8.7 mg/dL (8.4-10.2); Carbon Dioxide 26 mmol/L (22-32); Chloride 102 mmol/L (98-107); Estimated Glomerular Filt Rate > 60 mL/min (>60); Glucose 90 mg/dL (80-110); HEMOLYSIS < 15 (0-50); Potassium 3.7 mmol/L (3.4-5.1); Sodium 134 mmol/L (137-145)
[2023-09-15] MEDS: lisinopriL 10 MG TABLET PO (08:38)
[2023-09-15] MEDS: DOCUSATE 100 MG CAPSULE PO ×2 (08:38→21:38)
[2023-09-15] MEDS: ENOXAPARIN 40 MG/0.4 ML SYRINGE SUBCUT (08:38)
--- NOTE | 2023-09-15 10:22 | PC.NURSE ---
Day shift: Dr Jensen aware that Pt had small watery BM that was blood tinged w/ some small clots. said this is an expected outcome.
--- NOTE | 2023-09-15 13:00 | PC.NURSE ---
Day shift: Pt ambulating in halls and has gone over 4 miles (per Pt's smart watch) since approx 0530 this AM. Tolerated general diet at lunch. Pain well controlled with Tylenol. Makes needs know proper.
--- NOTE | 2023-09-15 15:37 | CM.DANOTE ---
Initial DCP Assessment Note Reviewed EMR and team rounds for pt's medical status and anticipated d/c needs. Met with pt and introduced self and role. Pt found to be alert/oriented, and walking the hallway. He states that his sister is in town to help him for the next month, and denies any resource needs for home d/c at this time. Payor: Medicare Attending: Dr. De La Torre Pt is a 68 year-old M post-op day 1 from a lap sigmoid colectomy. He resides alone and is a , independent at baseline. The only d/c recommendation is for post-op f/u with Dr. De La Torre. DCP will continue to follow for any further evolving needs, however, it's anticipated he may d/c home later this evening. Will continue to monitor. Discharge Planning/Care Management Advanced directive, confirm from FAMILY Start: 09/14/23 14:33 Freq: Q24H Status: Active Protocol: Document 09/14/23 14:33 FLORES (Rec: 09/14/23 14:34 FLORES [id number]) Advance Directive, confirm on record Time 14:34 Person contacted pt and sister Copy received No Document 09/15/23 15:16 YAD (Rec: 09/15/23 15:18 YAD [id number]) Advance Directive, confirm on record Time 14:34 Person contacted pt and sister Copy received No Time 15:17 Person contacted Pt Copy received No CM Discharge Assessment Start: 09/15/23 15:35 Freq: Status: Active Protocol: Document 09/15/23 15:35 DPL (Rec: 09/15/23 15:37 DPL [id number]) Discharge Planning Assessment Assigned Health Information Manager LETTY Chung Advance Directives? Yes Advance Directives on File No History Provided By Patient,Medical Record Has Patient been admitted in last 30 No days? Prior Living Arrangements House Household Members none Comment Pt's sister is in town and will plan to stay with him and assist for the next month. Type of transporation used prior to Drives own vehicle admit Independent with ADL's Yes Is patient alert and oriented? Yes Caregiver for Another No Community Services used prior to Physical Therapy admission: Comment No anticipated home d/c needs identified at this time. Barriers to Discharge No Discharge Plan Home Referrals Initiated None needed Whiteboard Updated in Patient Room with Yes name and ext. # of Health Information Manager Review Status In Process Please Provide Date Initial DC 09/15/23 Assessment Was Performed Pre-Anesthesia Assessment Start: 09/05/23 09:50 Freq: Status: Active Protocol: Document 09/05/23 09:50 CAB (Rec: 09/05/23 10:26 CAB [id number]) Pre-Anesthesia Assessment Preferred Name Shar Patient Information Reviewed Via Phone Assessment Assessment Completed With Patient Primary Care Provider Juanito Bryant Seen Specialist in Last 12 Months Yes Specialist Seen Environmental Adviser,Emergency,General surgeon Primary Language Barbadian Preferred Language Barbadian Hospitality Workers Required No Height 185.42 cm Weight 87.543 kg Body Mass Index (BMI) 25.4 Hearing Ability Normal Visual Assist Glasses Dentition Type Teeth, Natural Present Barriers to Learning None Hx Anesthesia Reactions No Hx Family Anesthesia Reaction No Hx Malignant Hyperthermia No Hx Blood Transfusions No Hx Blood Transfusion Reaction No Anesthesia Review Requested No Registered Radiographer No alcohol intake current alcohol intake frequency a few times a week Smoking Status Never smoker Substance Use Type does not use Pain Present Denied Pain History of Falling (Recent or History of No ) Patient is completely paralyzed or No completely immobile Mental Status Oriented to own ability Is patient on oxygen? No Does patient have MENG/SOB No Hx Sleep Apnea No CPAP/BIPAP use not prescribed Currently Taking a Beta Eli No Can You Climb a Flight of Stairs Without Yes SOB Hx Chest Pain No Hx SOB No Hx Syncope or Dizziness Yes: Related to heat stroke 2022 Anti-Coagulant Therapy No Has a Environmental Adviser Yes: Last visit09/06/[address] Mariee Cardiac Testing Yes: Nuc scan @ 08/17/23 Hx Pacemaker/ICD No Pacemaker Rep Required? No Comment Walks 4 miles daily Additional comment Cardiac records scanned Diet Type At Home Regular Dysphagia No Gastrointestinal Symptoms None Chronic UTI Yes Urinary Catheter Present No Hx Urinary Self Catheterization No Diabetes No Presence of External or Internal Medical No Devices Received a COVID vaccine? No Marital Status /- passed in January 06, 2023 Lives With none Current Living Arrangements House Number of Floors (Floors) One Floor Support System Sibling(s) Does the Patient Have Assistance After Yes: Sister will stay w/pt to Surgery assist w/care at DC Patient Discharge Plan Description Return Home Comment Pt advised 2-3 day length of stay per surgeon Feels Safe in Current Environment Yes Been Physically Hurt or Threatened By a No Person in Current Environment Do you have thoughts of harming yourself None or others? Are you currently considering suicide? No Do you have a plan to hurt yourself or No Plan others? Do You Have Any Spiritual Beliefs That No May Affect Your HC Choices? Do You Have Any Cultural Practices That No May Affect Your HC Choices? Comment Rastafarian Who Can We Speak to About Patient's Care Family, friends Identifying Code for Release of Patient Declines to issue Information Health Care Proxy/Next of Kin Karina (sister) Health Care Proxy Emergency Contact Name Karina (sister) Emergency Contact Advance Directives? Yes Advance Directives on File No Requested Patient Bring Advanced Yes Directives DOS Power of Policy Value Calculator No PAC Instructions Durable medical equipment, Medications to take/avoid,No ETOH/petroleum product on skin DOS,NPO,Post-op transportation,Pre-surgical wash,Sensory aids,Sturdy shoes /comfortable clothes,Do not bring valuables and remove jewelry
--- NOTE | 2023-09-15 17:42 | PM.PNPO.1 ---
Subjective Subjective Date Patient Seen: 09/15/23 Time Patient Seen: 17:42 Interval history: Positive flatus Minimal abdominal pain has required no narcotic medication Ambulated 6 miles over the past 24 hours Exam Vital Signs (past 8 hours): - 09/15/23 11:09 09/15/23 11:35 09/15/23 15:16 Temperature 98.0 F Pulse Rate 75 Respiratory Rate 18 Blood Pressure 146/74 H Pulse Oximetry 98 98 98 Oxygen Delivery Method Room Air Room Air 09/15/23 16:00 Temperature 98.3 F Pulse Rate 66 Respiratory Rate 18 Blood Pressure 155/80 H Pulse Oximetry 100 Oxygen Delivery Method Oxygen Delivery Method Room Air Oxygen Flow Rate 0 Narrative Exam Narrative: General adult man alert oriented no acute distress Abdomen soft appropriately tender to palpation. Midline dressing clean dry intact slight shadowing at the inferior aspect. Objective Labs 09/15/23 06:13 09/15/23 06:13 Labs: Laboratory Results - last 24 hr 09/15/23 06:13 WBC 9.8 RBC 4.21 L Hgb 13.2 L Hct 39.3 L MCV 93.2 MCH 31.4 MCHC 33.7 RDW 13.5 Plt Count 278 Neut % (Auto) 73.2 Lymph % (Auto) 14.0 L [place] % (Auto) 12.2 Eos % (Auto) 0.3 L Baso % (Auto) 0.3 Neut # (Auto) 7200 H Lymph # (Auto) 1400 [place] # (Auto) 1200 H Eos # (Auto) 0 Baso # (Auto) 0 Sodium 134 L Potassium 3.7 Chloride 102 Carbon Dioxide 26 BUN 12 Creatinine 1.08 Estimated GFR > 60 BUN/Creatinine Ratio 11.1 Glucose 90 Calcium 8.7 PFSH Medical History History of COVID-19 (~2021) Elevated PSA LBBB (left bundle branch block) Fistula HTN (hypertension) Surgical History Hx of arthroscopy of left knee (1986) Hx of colonoscopy (08/19/23) Family History Mother Cancer Father Cancer Brother Cancer Prostate cancer Social History marital status: household members: none lives independently: Yes occupational status: employed Smoking Status: Never smoker alcohol intake: current substance use type: does not use Assessment & Plan Post-op Postoperative Procedures: Procedures Operation Date: 09/14/23 08:45 Actual Procedure Side Surgeon p Laparoscopic Sigmoid Colectomy Raleigh De La Torre MD Quality VTE Deep Vein Thrombosis/Pulmonary Embolism Present on Admission: No
[2023-09-16 03:00] VITALS: O2SAT 100
[2023-09-16] MEDS: ACETAMINOPHEN 325 MG TABLET 650 MG PO (04:45)
[2023-09-16] MEDS: IBUPROFEN 600 MG TABLET PO (04:45)
[2023-09-16 04:57] VITALS: BP 163/86; PULSE 62; RESP 16; TEMP 36.4; O2SAT 100
[2023-09-16 07:00] VITALS: O2SAT 97
[2023-09-16 07:30] VITALS: BP 146/80; PULSE 65; RESP 18; TEMP 36.6; O2SAT 97
[2023-09-16 08:26] VITALS: BP 146/80; PULSE 65
[2023-09-16] MEDS: lisinopriL 10 MG TABLET PO (08:26)
--- NOTE | 2023-09-16 08:51 | CM.DPC ---
DCP Cont. Reviewed EMR and team rounds for status updates. Plan is for pt to d/c home this morning, no idenfied home d/c needs are identified for assistance. His sister will plan to transport.
--- NOTE | 2023-09-16 09:02 | PM.DS.1 ---
History of Present Illness History of Present Illness Chief complaint: Lap Sigmoid Colectomy Narrative: 68 y.o man with a known chronic colovesicular fistula here for laparoscopic assisted sigmoid colectomy. No interval changes in health. Please refer to the H&P from Jul 2023 for further detail. Discharge Providers Provider Date of admission: 09/14/23 07:19 Discharge Date: 09/16/23 Primary care physician: Juanito Bryant MD Consults: 09/14/23 12:51 Consult to Physical Therapy Evaluate & Treat Comment: Physician Instructions: Evaluate and Treat Discharge provider: Raleigh De La Torre MD Summary Hospital Course Discharge Diagnosis: Colovesicular fistula Hospital Course: 68-year-old man underwent a elective laparoscopic assisted sigmoid colectomy September 14 2023 for a chronic colovesicular fistula. He tolerated the operation well progressed appropriately. On the date of discharge postoperative day 2 he is tolerant of a regular diet he has return of bowel function he has been ambulating several miles daily and with minimal pain afebrile. Exam Vital Signs (past 8 hours): - 09/16/23 03:00 09/16/23 04:57 09/16/23 07:00 Temperature 97.5 F L Pulse Rate 62 Respiratory Rate 16 Blood Pressure 163/86 H Pulse Oximetry 100 100 97 Oxygen Delivery Method Room Air Room Air Oxygen Flow Rate 0 09/16/23 07:30 09/16/23 08:26 Temperature 97.8 F Pulse Rate 65 65 Respiratory Rate 18 Blood Pressure 146/80 H 146/80 H Pulse Oximetry 97 Oxygen Delivery Method Oxygen Flow Rate 0 Oxygen Delivery Method Room Air Oxygen Flow Rate 0 Narrative Exam Narrative: General adult man alert oriented no acute distress Chest nonlabored respiration Abdomen appropriately tender to palpation. Midline dressing clean dry intact with a small degree of shadowing at the inferior aspect. Objective Labs 09/15/23 06:13 09/15/23 06:13 [facility] Medical History History of COVID-19 (~2021) Elevated PSA LBBB (left bundle branch block) Fistula HTN (hypertension) Surgical History Hx of arthroscopy of left knee (1986) Hx of colonoscopy (08/19/23) Family History Mother Cancer Father Cancer Brother Cancer Prostate cancer Social History marital status: household members: none lives independently: Yes occupational status: employed Smoking Status: Never smoker alcohol intake: current substance use type: does not use Discharge Plan Discharge Plan Patient Disposition: Home Provider Discharge Comment: -Ok to shower with midline dressing in place -No lifting > 10 lbs for the next 1 month -Band aid over laparoscopic port incision -No driving while taking narcotics -Follow up in general surgery clinic 1 week Discharge orders & Medications Prescriptions: New oxycodone 5 mg tablet 5 mg PO Q6H PRN (Reason: pain) Qty: 15 0RF acetaminophen [Tylenol] 325 mg capsule 650 mg PO QID PRN (Reason: pain) Qty: 60 0RF Continued One-A-Day Men's Multivitamin 400-20-300 mcg tablet 1 tab PO DAILY lisinopril 10 mg tablet 10 mg PO DAILY cholecalciferol (vitamin D3) [Vitamin D3] 10 mcg (400 unit) Capsule 75 mcg PO DAILY Patient Comments: Gummie Glucosamine Chondroitin 550-30-1 mg Capsule 2 cap PO DAILY ibuprofen 200 mg Tablet 400 mg PO Q6H PRN (Reason: Pain) Discontinued metronidazole 500 mg tablet 500 mg PO TID Follow up/Referrals: Raleigh De La Torre MD [Physician] - 1 Week Diet/Activity/Treatments Diet: Regular Skin/Wound/Dressing Care Report to your healthcare provider any signs of infection, such as:: chills, fever, increased pain, unusual drainage and unusual redness Visit Report/Discharge Packet Stand Alone Forms: Patient Portal/API, Stroke Signs & Symptoms Discharge Data Primary Care Provider: Juanito Bryant VTE Deep Vein Thrombosis/Pulmonary Embolism Present on Admission: No
--- NOTE | 2023-09-16 11:36 | PC.NURSE ---
Patient is A&OX3, VSS, afebrile on RA. He is ambulating around the unit independently carrying fleming catheter. He reports x3 soft stools this a.m. and colace is held. MD at bedside this a.m. clears him for discharge home. Incision sites C/D/I midline dressing with aquacel intact with slight shadow drainage. He tolerates breakfast well and denies n/v. Abdomen is soft and tender he reports feeling slightly distended. +BS x4.He verbalizes understanding of site care, activity restrictions,medications, s/sx of infection/ complication, fleming catheter care and leg bag care, as well as follow up appointment with MD De La Torre next week. His sister arrives at 1015 a.m. today to transport patient home via private vehicle with all of his belongings.
== END 2023-09-16 10:15 | disposition home or self-care (01) | DRG 655 ==
PROVIDERS: Admitting Provider Surgery; PCP Family Medicine; Referring Provider Surgery; Visit Provider Surgery
PROC: 0DTE0ZZ Resection of Large Intestine, Open Approach (ICD-10-PCS; principal; 2023-09-14 08:45)
DX: N32.1 Vesicointestinal fistula (principal); K42.9 Umbilical hernia without obstruction or gangrene; I10 Essential (primary) hypertension
CPT/HCPCS: 36415; 44204; 80048; 82962; 85025; 97161; 97530; J1100; J1170; J1650; J1885; J2405; J2543; J2704; J3010

== ENCOUNTER → 2023-09-26 13:07 | Outpatient (CLI) | payer MEDICARE, OTHER, SELFPAY ==
[2023-09-14 14:28] VITALS: BMI 25.4
--- NOTE | 2023-09-26 13:09 | DI.CT.S_ITS ---
PROCEDURE: CT CYSTOGRAM INDICATIONS: routine r/o bladder leak sp colectomy for colovesicular fist TECHNIQUE: Both before and after gravity instillation of 10% Isovue contrast solution into the bladder through a Kaminski catheter, 5 mm axial images acquired from the bladder dome to the symphysis. 5 mm thick coronal and sagittal reformats were acquired. For radiation dose reduction, the following was used: automated exposure control, adjustment of mA and/or kV according to patient size. COMPARISON: None. FINDINGS: Image quality: Diagnostic. Bladder: Precontrast images demonstrates decompression of the urinary bladder, which contains air and a Kaminski catheter. After installation of contrast, there is no bladder leak evident. Distal Ureters: No abnormal distension. PELVIS: Peritoneum and Bowel: Bowel loops demonstrate normal wall thickness and caliber. No free fluid or air. Colonic diverticulosis without evidence of diverticulitis. Partial colectomy. Normal appendix. Pelvic Organs: No pelvic mass. Pelvic Nodes: No enlarged lymph nodes. Miscellaneous: Small inguinal hernias containing fat. Laparotomy. Bones: No aggressive osseous abnormality. IMPRESSION: No evidence of bladder leak. Dictated by: Shar Sunshine M.D. on 09/26/2023 at 14:23 Approved by: Shar Sunshine M.D. on 09/26/2023 at 14:26
--- NOTE | 2023-09-26 13:48 | PC.NURSE ---
Urinary Catheter placed for cystoscopy ordered by Dr. De La Torre. Verbal consent to place catheter obtained from patient. This RN placed 16f 2 way catheter using sterile technique. Urine observed in catheter line and 10mls sterile water injected to inflate balloon for catheter to remain indwelling. CT done and catheter connected to Leg bag for patient to use at home. Patient hopeful that Dr. De La Torre will see CT results today and catheter can be removed today.
== END ==
PROVIDERS: PCP Family Medicine; Referring Provider Surgery; Visit Provider Surgery
DX: L98.8 Other specified disorders of the skin and subcutaneous tissue (principal); K57.90 Diverticulosis of intestine, part unspecified, without perforation or abscess without bleeding; K40.90 Unilateral inguinal hernia, without obstruction or gangrene, not specified as recurrent; Z90.49 Acquired absence of other specified parts of digestive tract
CPT/HCPCS: 72194; Q9967

== ENCOUNTER → 2025-06-17 09:04 | Outpatient (CLI) | payer MEDICARE, OTHER, SELFPAY ==
[2023-09-14 14:28] VITALS: BMI 25.4
--- NOTE | 2025-06-17 09:53 | DI.MRI.S_ITS ---
PROCEDURE: MR PELVIC PROSTATE PROTOCOL
== END ==
LOC: MRI 09:07
PROVIDERS: PCP Family Medicine; Referring Provider Family Medicine; Visit Provider Family Medicine
DX: N42.9 Disorder of prostate, unspecified (principal); R97.20 Elevated prostate specific antigen [PSA]; K57.30 Diverticulosis of large intestine without perforation or abscess without bleeding; K40.20 Bilateral inguinal hernia, without obstruction or gangrene, not specified as recurrent
CPT/HCPCS: 72197; A9579